=== PATIENT | male | born 1945 | race Two or more races ===

== ENCOUNTER 2017-03-01 08:45 | Inpatient (IN) | payer OTHER ==
[~2017-03-01] VITALS: Ht 165.1 cm; Wt 74.8 kg
[2017-03-01] VITALS (7 sets, daily range): BP systolic 107–127; BP diastolic 64–90
[2017-03-01 09:39] LABS: HEMATOCRIT 48.5 % (42.0-52.0); HEMOGLOBIN 15.7 G/DL (14.2-18.0); MEAN CORPUSCULAR VOLUME 97 FL (80-99); PLATELET COUNT 194 K/UL (150-450); RED CELL DISTRIBUTION WIDTH 10.8 % (11.6-14.8); WHITE BLOOD COUNT 15.4 K/UL (4.8-10.8)
[2017-03-01 09:43] LABS: ANION GAP 11 mmol/L (5-15); BLOOD UREA NITROGEN 19 mg/dL (7-18); CALCIUM 7.7 MG/DL (8.5-10.1); CARBON DIOXIDE 29 MMOL/L (21-32); CHLORIDE 96 MMOL/L (98-107); CREATININE 0.9 MG/DL (0.55-1.30); POTASSIUM 4.3 MMOL/L (3.5-5.1); SODIUM 136 MMOL/L (136-145)
[2017-03-01] MEDS ORDERED: Oseltamivir 75mg cap ORAL SCH (09:45)
--- NOTE | 2017-03-01 10:13 | Diagnostic Imaging Report ---
Indication: Cough Technique: One view of the chest Comparison: none Findings: Extensive bilateral diffuse interstitial and alveolar infiltrates versus edema are present. No definite effusions. The heart is enlarged Impression: Extensive bilateral diffuse parenchymal infiltrates versus edema. Correlate with clinical findings Cardiomegaly
[2017-03-01 10:14] LABS: ALANINE AMINOTRANSFERASE 29 U/L (12-78); ALBUMIN 3.1 G/DL (3.4-5.0); ALBUMIN/GLOBULIN RATIO 0.8 (1.0-2.7); ALKALINE PHOSPHATASE 88 U/L (46-116); ASPARTATE AMINO TRANSFERASE 20 U/L (15-37); BILIRUBIN,DIRECT 0.2 MG/DL (0.0-0.3); BILIRUBIN,TOTAL 1.1 MG/DL (0.2-1.0); CKMB 2.1 NG/ML (0.0-3.6); CREATINE KINASE 84 U/L (26-308)
--- NOTE | 2017-03-01 11:21 | Emergency Room Report ---
History of Present Illness General Chief Complaint: Dyspnea/Respdistress Source: Patient Present Illness HPI 71-year-old male brought in by daughter with 2 days of productive cough, decreased appetite, "not feeling well". Issue with history of diabetes, but "has not seen a doctor in a long time". Has not gotten flu or pneumonia vaccine Patient complaining of shortness of breath, progressively worse. denies any history of COPD or asthma Allergies: Coded Allergies: No Known Allergies (Unverified , 03/01/17) Patient History Past Medical History: DM Past Surgical History: none Pertinent Family History: none Social History: Denies: smoking, alcohol use, drug use Immunizations: UTD Reviewed Nursing Documentation: PMH: Agreed, PSxH: Agreed Nursing Documentation-PMH Hx Diabetes: Yes Review of Systems All Other Systems: negative except mentioned in HPI Physical Exam Vital Signs Date Time Temp Pulse Resp B/P (MAP) Pulse Ox O2 Delivery O2 Flow Rate FiO2 03/01/17 08:58 97.2 105 27 127/90 98 Non-Rebreather 15.0 Sp02 EP Interpretation: reviewed, normal General Appearance: normal inspection, alert, GCS 15, non-toxic, mild distress Head: normocephalic, atraumatic Eyes: bilateral eye PERRL, bilateral eye EOMI ENT: normal ENT inspection, hearing grossly normal, normal pharynx, no angioedema, normal voice, TMs + canals normal, uvula midline, moist mucus membranes Neck: normal inspection, full range of motion, supple, thyroid normal, no meningismus, no bony tend Respiratory: normal inspection, no retraction, no accessory muscle use, no wheezing, respiratory distress, accessory muscle use, rhonchi, speaking full sentences Cardiovascular #1: regular rate, rhythm, no edema, no JVD, normal capillary refill Gastrointestinal: normal inspection, normal bowel sounds, non tender, soft, no mass, no peritonitis, non-distended, no guarding, no hernia, no pulsatile mass Genitourinary: no CVA tenderness Musculoskeletal: normal inspection, back normal, normal range of motion, no calf tenderness, pelvis stable, Jose Rafael's Sign negative Neurologic: normal inspection, alert, oriented x3, responsive, 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, motor strength/tone normal, cerebellar normal, normal gait, speech normal Psychiatric: normal inspection, judgement/insight normal, mood/affect normal, no suicidal/homicidal ideation, no delusions Skin: normal inspection, normal color, no rash Lymphatic: normal inspection, no adenopathy Procedures Critical Care Time Critical Care Time CC time 30 Critical care time endorsed for this patient for sepsis, demand ischemia, bilateral PNA Critical care time includes review of laboratory tests, imaging, review of EMR, review of paperwork from SNF (if available), discussion with patient and family (if available), review of code status/POLS (if available). Critical care time also likely includes assessment of fluid status, stabilization of vital signs, selection and dosing of appropriate antibiotics, selection and dosing of Aspirin/Plavix/Heparin/Lovenox, discussion with PMD/ attending hospitalist/director workforce management. Critical care time does not include any procedures which are documented elsewhere in this EMR. Medical Decision Making Diagnostic Impression: Primary Impression: Dyspnea Qualified Codes: R06.00 - Dyspnea, unspecified Additional Impressions: Bilateral pneumonia Qualified Codes: J18.9 - Pneumonia, unspecified organism Sepsis Qualified Codes: A41.9 - Sepsis, unspecified organism Elevated troponin ER Course Patient's vital signs significant for tachycardia and tachypnea In setting of bilateral pneumonia, patient has sepsis Labs significant for elevated leukocytosis, lactate of 4, and elevated troponin 0.9, likely troponinemia due to demand ischemia from sepsis Was given empiric antibiotics, and IV fluid Patient did not have fever so was not given Tylenol Was also given aspirin for demand ischemia- ECG shows upsloping J-point in V3 V4 with Q waves in anterior leads No known history of previous CA. Will need repeat troponin ABG does not demonstrate acidosis Given sepsis due to bilateral pneumonia, patient placed on nonrebreather high disucssed with patient and daughter potential need to do intubation does not want to be intubated endorsing Dr. Martinez for ICU admission, [id number] Also endorsed to Dr. Avila as managing director workforce management EKG Diagnostic Results Rate: tachycardiac Rhythm: NSR ST Segments: other - Q waves in anterior leads ASA given to the pt in ED: Yes Rhythm Strip Diag. Results EP Interpretation: yes Rate: 95 Rhythm: NSR, no PVC's, no ectopy Chest X-Ray Diagnostic Results Chest X-Ray Diagnostic Results : Chest X-Ray Ordered: Yes # of Views/Limited/Complete: 1 View Indication: Shortness of Breath EP Interpretation: Yes Impression: Other - Bilateral PNA Electronically Signed by: Dr Gucci Arroyo MD Last Vital Signs Date Time Temp Pulse Resp B/P (MAP) Pulse Ox O2 Delivery O2 Flow Rate FiO2 03/01/17 09:08 105 27 Non-Rebreather 15.0 03/01/17 09:08 97.2 127/90 98 Status: improved Disposition: ADMITTED INPATIENT Condition: Critical Scripts No Active Prescriptions or Reported Meds Referrals: NOT CHOSEN IPA/,REFERRING (PCP) GUCCI ARROYO M.D. Mar 01, 2017 11:21
[2017-03-01] MEDS ORDERED: Morphine Sulfate 4mg/ml Inj IVP PRN (11:45)
[2017-03-01] MEDS ORDERED: Miralax 17gm pkt ORAL PRN (11:45)
[2017-03-01] MEDS ORDERED: Ertapenem 1 GM in NS 55 ML IV ONE (14:00)
[2017-03-01] MEDS ORDERED: Vancomycin 1 GM in D5W 275 ML IVPB ONE (14:30)
[2017-03-01] MEDS ORDERED: Vancomycin 500 MG in NS 110 ML IVPB SCH (14:45)
[2017-03-01] MEDS ORDERED: Amikacin 1,000 MG in NS 110 ML IV SCH (15:00)
[2017-03-01] MEDS ORDERED: Ertapenem (INVanz) 1gm Inj ONE (15:53)
[2017-03-01] MEDS ORDERED: Vancomycin 1gm inj IVPB ONE (16:33)
--- NOTE | 2017-03-01 22:11 | Consultation ---
History of Present Illness General Date patient seen: Mar 01, 2017 Chief Complaint: Dyspnea/Respdistress Referring physician: dr ye Reason for Consultation: respiratory failure Present Illness HPI 71-year-old with history of diabetes male brought in by daughter with 2 days of productive cough, decreased appetite, Patient complaining of shortness of breath, progressively worse.denies any history of COPD or asthma. His CXR showed extensive infiltrate and his sputum was positive for Influenza A. Allergies: Coded Allergies: No Known Allergies (Unverified , 03/01/17) Medication History No Active Prescriptions or Reported Meds Patient History Healthcare decision maker N Resuscitation status Advanced Directive on File Past Medical/Surgical History Past Medical/Surgical History: (1) History of diabetes mellitus Review of Systems Respiratory: Reports: shortness of breath Physical Exam General Appearance: WD/WN Lines, tubes and drains: peripheral HEENT: normocephalic, atraumatic Neck: non-tender Respiratory/Chest: chest wall non-tender, lungs clear Breasts: no masses Cardiovascular/Chest: normal rate Abdomen: normal bowel sounds Genitourinary/Rectal: normal genital exam, heme negative stool Last 24 Hour Vital Signs Date Time Temp Pulse Resp B/P (MAP) Pulse Ox O2 Delivery O2 Flow Rate FiO2 03/01/17 21:51 98.0 90 28 107/64 98 Non-Rebreather 10.0 60 03/01/17 21:33 98.0 90 28 107/64 98 Non-Rebreather 10.0 60 03/01/17 21:31 60 03/01/17 19:42 98.0 95 33 115/77 100 Non-Rebreather 10.0 03/01/17 18:01 98.0 101 33 115/68 92 Non-Rebreather 10.0 03/01/17 16:00 98.2 95 33 112/78 95 Nasal Cannula 5.0 03/01/17 13:00 97.0 91 21 115/73 95 Nasal Cannula 5.0 03/01/17 11:15 97.2 98 25 120/88 96 Non-Rebreather 15.0 03/01/17 09:08 105 27 Non-Rebreather 15.0 03/01/17 09:08 97.2 103 27 127/90 98 Non-Rebreather 15.0 03/01/17 08:58 97.2 105 27 127/90 98 Non-Rebreather 15.0 Laboratory Tests Test 03/01/17 08:55 03/01/17 10:12 03/01/17 10:30 03/01/17 13:00 White Blood Count 15.4 K/UL (4.8-10.8) H Red Blood Count 5.00 M/UL (4.70-6.10) Hemoglobin 15.7 G/DL (14.2-18.0) Hematocrit 48.5 % (42.0-52.0) Mean Corpuscular Volume 97 FL (80-99) Mean Corpuscular Hemoglobin 31.3 PG (27.0-31.0) H Mean Corpuscular Hemoglobin Concent 32.3 G/DL (32.0-36.0) Red Cell Distribution Width 10.8 % (11.6-14.8) L Platelet Count 194 K/UL (150-450) Mean Platelet Volume 8.4 FL (6.5-10.1) Neutrophils (%) (Auto) % (45.0-75.0) Lymphocytes (%) (Auto) % (20.0-45.0) Monocytes (%) (Auto) % (1.0-10.0) Eosinophils (%) (Auto) % (0.0-3.0) Basophils (%) (Auto) % (0.0-2.0) Differential Total Cells Counted 100 Neutrophils % (Manual) 89 % (45-75) H Lymphocytes % (Manual) 8 % (20-45) L Monocytes % (Manual) 3 % (1-10) Eosinophils % (Manual) 0 % (0-3) Basophils % (Manual) 0 % (0-2) Band Neutrophils 0 % (0-8) Platelet Estimate Adequate Platelet Morphology Normal Red Blood Cell Morphology Normal Sodium Level 136 MMOL/L (136-145) Potassium Level 4.3 MMOL/L (3.5-5.1) Chloride Level 96 MMOL/L (98-107) L Carbon Dioxide Level 29 MMOL/L (21-32) Anion Gap 11 mmol/L (5-15) Blood Urea Nitrogen 19 mg/dL (7-18) H Creatinine 0.9 MG/DL (0.55-1.30) Estimat Glomerular Filtration Rate mL/min (>60) Glucose Level 397 MG/DL (74-106) H Calcium Level 7.7 MG/DL (8.5-10.1) L Total Bilirubin 1.1 MG/DL (0.2-1.0) H Direct Bilirubin 0.2 MG/DL (0.0-0.3) Aspartate Amino Transf (AST/SGOT) 20 U/L (15-37) Alanine Aminotransferase (ALT/SGPT) 29 U/L (12-78) Alkaline Phosphatase 88 U/L (46-116) Total Creatine Kinase 84 U/L (26-308) Creatine Kinase MB 2.1 NG/ML (0.0-3.6) Creatine Kinase MB Relative Index 2.5 Troponin I 0.930 ng/mL (0.000-0.056) Pro-B-Type Natriuretic Peptide 7715 pg/mL (0-125) H Total Protein 7.0 G/DL (6.4-8.2) Albumin 3.1 G/DL (3.4-5.0) L Globulin 3.9 g/dL Albumin/Globulin Ratio 0.8 (1.0-2.7) L Arterial Blood pH 7.455 (7.350-7.450) Arterial Blood Partial Pressure CO2 34.2 mmHg (35.0-45.0) L Arterial Blood Partial Pressure O2 112.2 mmHg (75.0-100.0) H Arterial Blood HCO3 23.5 mmol/L (22.0-26.0) Arterial Blood Oxygen Saturation 97.9 % (92.0-98.0) Arterial Blood Base Excess 0.3 Hero Test Positive Lactic Acid Level 4.10 mmol/L (0.66-2.22) H 3.90 mmol/L (0.66-2.22) H Test 03/01/17 20:36 Arterial Blood pH 7.413 (7.350-7.450) Arterial Blood Partial Pressure CO2 42.3 mmHg (35.0-45.0) Arterial Blood Partial Pressure O2 66.8 mmHg (75.0-100.0) L Arterial Blood HCO3 26.4 mmol/L (22.0-26.0) H Arterial Blood Oxygen Saturation 92.6 % (92.0-98.0) Arterial Blood Base Excess 1.6 Hero Test Positive Height (Feet): 5 Height (Inches): 5.00 Weight (Pounds): 150 Medications Current Medications Medications (Trade) Dose Ordered Sig/Channing Route PRN Reason Start Time Stop Time Status Last Admin Dose Admin Acetaminophen (Tylenol) 650 mg Q4H PRN ORAL fever 03/01/17 11:45 03/31/17 11:44 Albuterol/ Ipratropium (Albuterol/ Ipratropium) 3 ml Q4H PRN HHN Shortness of Breath 03/01/17 11:45 03/06/17 11:44 Amikacin Sulfate 1000 mg/Sodium Chloride 114 ml @ 114 mls/hr Q24H IV 03/01/17 15:00 03/08/17 14:59 03/01/17 18:46 Heparin Sodium (Porcine) (Heparin 5000 units/ml) 5,000 units EVERY 12 HOURS SUBQ 03/01/17 21:00 03/31/17 20:59 Morphine Sulfate (Morphine Sulfate) 2 mg Q4H PRN IVP Severe Pain (Pain Scale 7-10) 03/01/17 11:45 03/08/17 11:44 Norepinephrine Bitartrate 4 mg/ Dextrose 254 ml @ 0 mls/hr Q24H IV 03/01/17 13:30 03/31/17 13:29 Ondansetron HCl (Zofran) 4 mg Q6H PRN IVP Nausea & Vomiting 03/01/17 11:45 03/31/17 11:44 Oseltamivir Phosphate (Tamiflu) 75 mg TWICE A DAY ORAL 03/01/17 22:00 03/06/17 21:59 Pantoprazole (Protonix) 40 mg DAILY IVP 03/02/17 09:00 04/01/17 08:59 Sodium Chloride 1,000 ml @ 100 mls/hr Q10H IVLG 03/01/17 13:30 03/31/17 13:29 03/01/17 16:01 Vancomycin HCl 500 mg/Sodium Chloride 110 ml @ 110 mls/hr Q12H IVPB 03/02/17 02:00 03/07/17 01:59 Assessment/Plan Problem List: (1) Acute respiratory failure ICD Codes: J96.00 - Acute respiratory failure, unspecified whether with hypoxia or hypercapnia SNOMED: 27268835 (2) History of diabetes mellitus ICD Codes: Z86.39 - Personal history of other endocrine, nutritional and metabolic disease SNOMED: 457148574 (3) Influenza A ICD Codes: J10.1 - Influenza due to other identified influenza virus with other respiratory manifestations SNOMED: 745857185 Assessment/Plan titrate fio2 to sat of 92% check sputum ID consult dvt prophylaxis JAYRO FREDERICK Mar 01, 2017 22:11
[2017-03-01] MEDS: Heparin 5000 units/ml inj SUBQ SCH (23:36)
[2017-03-01] MEDS: Oseltamivir 75mg cap ORAL SCH (23:36)
[2017-03-02] VITALS: BP 115/71
[2017-03-02] MEDS ORDERED: Vancomycin 500mg/D5W 110ml IVPB SCH ×2 (02:00)
[2017-03-02] MEDS ORDERED: Vancomycin 500 MG in NS 110 ML IVPB SCH (02:00)
[2017-03-02] MEDS: Albuterol/Ipratropium 3ml neb HHN PRN ×2 (02:13→16:31)
[2017-03-02 04:00] VITALS: BP 135/72
[2017-03-02 05:01] LABS: HEMATOCRIT 46.6 % (42.0-52.0); HEMOGLOBIN 15.6 G/DL (14.2-18.0); MEAN CORPUSCULAR VOLUME 97 FL (80-99); PLATELET COUNT 200 K/UL (150-450); RED CELL DISTRIBUTION WIDTH 11.2 % (11.6-14.8); WHITE BLOOD COUNT 14.4 K/UL (4.8-10.8)
[2017-03-02 05:30] LABS: ALANINE AMINOTRANSFERASE 19 U/L (12-78); ALBUMIN 2.6 G/DL (3.4-5.0); ALBUMIN/GLOBULIN RATIO 0.7 (1.0-2.7); ALKALINE PHOSPHATASE 73 U/L (46-116); ANION GAP 12 mmol/L (5-15); ASPARTATE AMINO TRANSFERASE 19 U/L (15-37); BILIRUBIN,DIRECT 0.2 MG/DL (0.0-0.3); BILIRUBIN,TOTAL 0.9 MG/DL (0.2-1.0); BLOOD UREA NITROGEN 23 mg/dL (7-18); CALCIUM 7.2 MG/DL (8.5-10.1); CARBON DIOXIDE 24 MMOL/L (21-32); CHLORIDE 102 MMOL/L (98-107); CREATININE 0.8 MG/DL (0.55-1.30); POTASSIUM 4.5 MMOL/L (3.5-5.1); SODIUM 138 MMOL/L (136-145)
[2017-03-02 08:00] VITALS: BP 129/77
[2017-03-02] MEDS: Pantoprazole Inj IVP SCH (09:15)
[2017-03-02] MEDS: Oseltamivir 75mg cap ORAL SCH ×2 (09:15→17:13)
[2017-03-02] MEDS: Heparin 5000 units/ml inj SUBQ SCH (09:19)
--- NOTE | 2017-03-02 10:54 | Consultation ---
History of Present Illness General Date patient seen: Mar 02, 2017 Time patient seen: 10:39 Chief Complaint: Dyspnea/Respdistress Present Illness HPI 71 y/o M with hx of Dm2 presents to ED on 03/01 with 2 days of productive cough, decreased appetite, not feeling well and worsening SOB. Afebrile. Leukocytosis up to 15, now improving. CXR with edema vs infiltrates. Positive for Influenza A. started on IV vanco, erta, amikacin and tamiflu. Allergies: Coded Allergies: No Known Allergies (Unverified , 03/01/17) Medication History No Active Prescriptions or Reported Meds Patient History Healthcare decision maker PRESLEY RYDER Resuscitation status Full Code Advanced Directive on File No Patient History Narrative PMhx: as above Shx: Denies: smoking, alcohol use, drug use Fhx: non contributory Review of Systems All Other Systems: negative except mentioned in HPI Physical Exam Physical Exam Narrative General Appearance: normal inspection, alert, non-toxic, mild distress, on bipap HEENT:: normocephalic, atraumatic, bilateral eye PERRL, bilateral eye EOMI, moist mucus membranes Neck: normal inspection, full range of motion, supple, thyroid normal, no meningismus, no bony tend Respiratory: +wheezing Cardiovascular regular rate, rhythm, no edema Gastrointestinal: normal inspection, normal bowel sounds, non tender, soft, no mass non-distended, Musculoskeletal: normal inspection, back normal, normal range of motion Neurologic: normal inspection, alert, oriented x3, responsive,no focal deficits Skin: normal inspection, normal color, no rash Last 24 Hour Vital Signs Date Time Temp Pulse Resp B/P (MAP) Pulse Ox O2 Delivery O2 Flow Rate FiO2 03/02/17 09:49 109 26 97 Facial 60 03/02/17 08:32 Non-Rebreather 15.0 100 03/02/17 08:31 97 Non-Rebreather 15.0 100 03/02/17 08:30 100 26 Non-Rebreather 15.0 100 03/02/17 04:00 97.6 110 20 135/72 97 Non-Rebreather 15.0 03/02/17 03:36 110 03/02/17 02:24 109 24 91 Non-Rebreather 15.0 100 03/02/17 00:14 96 Non-Rebreather 15.0 100 03/02/17 00:14 Non-Rebreather 15.0 100 03/02/17 00:00 97.7 103 20 115/71 98 Non-Rebreather 15.0 03/02/17 00:00 102 03/01/17 21:51 98.0 90 28 107/64 98 Non-Rebreather 10.0 60 03/01/17 21:33 98.0 90 28 107/64 98 Non-Rebreather 10.0 60 03/01/17 21:31 60 03/01/17 21:12 94 34 96 Facial 60 03/01/17 20:14 93 36 95 Facial 50 03/01/17 20:14 107 24 97 Non-Rebreather 15.0 100 03/01/17 20:14 107 24 Non-Rebreather 15.0 100 03/01/17 20:14 100 03/01/17 19:42 98.0 95 33 115/77 100 Non-Rebreather 10.0 03/01/17 19:00 100 26 Non-Rebreather 15.0 100 03/01/17 18:01 98.0 101 33 115/68 92 Non-Rebreather 10.0 03/01/17 16:00 98.2 95 33 112/78 95 Nasal Cannula 5.0 03/01/17 13:00 97.0 91 21 115/73 95 Nasal Cannula 5.0 03/01/17 11:15 97.2 98 25 120/88 96 Non-Rebreather 15.0 Intake and Output 03/01/17 03/02/17 19:00 07:00 Intake Total 1680.0 ml 960 ml Balance 1680.0 ml 960 ml Intake Oral 100 ml IV Total 1680.0 ml 860 ml # Voids 1 2 Laboratory Tests Test 03/01/17 13:00 03/01/17 20:36 03/02/17 04:00 03/02/17 08:22 Lactic Acid Level 3.90 mmol/L (0.66-2.22) H Arterial Blood pH 7.413 (7.350-7.450) 7.270 (7.350-7.450) Arterial Blood Partial Pressure CO2 42.3 mmHg (35.0-45.0) 49.9 mmHg (35.0-45.0) H Arterial Blood Partial Pressure O2 66.8 mmHg (75.0-100.0) L 79.8 mmHg (75.0-100.0) Arterial Blood HCO3 26.4 mmol/L (22.0-26.0) H 22.4 mmol/L (22.0-26.0) Arterial Blood Oxygen Saturation 92.6 % (92.0-98.0) 94.1 % (92.0-98.0) Arterial Blood Base Excess 1.6 -4.9 Hero Test Positive Positive White Blood Count 14.4 K/UL (4.8-10.8) H Red Blood Count 4.80 M/UL (4.70-6.10) Hemoglobin 15.6 G/DL (14.2-18.0) Hematocrit 46.6 % (42.0-52.0) Mean Corpuscular Volume 97 FL (80-99) Mean Corpuscular Hemoglobin 32.5 PG (27.0-31.0) H Mean Corpuscular Hemoglobin Concent 33.5 G/DL (32.0-36.0) Red Cell Distribution Width 11.2 % (11.6-14.8) L Platelet Count 200 K/UL (150-450) Mean Platelet Volume 8.6 FL (6.5-10.1) Neutrophils (%) (Auto) % (45.0-75.0) Lymphocytes (%) (Auto) % (20.0-45.0) Monocytes (%) (Auto) % (1.0-10.0) Eosinophils (%) (Auto) % (0.0-3.0) Basophils (%) (Auto) % (0.0-2.0) Differential Total Cells Counted 100 Neutrophils % (Manual) 93 % (45-75) H Lymphocytes % (Manual) 4 % (20-45) L Monocytes % (Manual) 3 % (1-10) Eosinophils % (Manual) 0 % (0-3) Basophils % (Manual) 0 % (0-2) Band Neutrophils 0 % (0-8) Platelet Estimate Adequate Platelet Morphology Normal Red Blood Cell Morphology Normal Sodium Level 138 MMOL/L (136-145) Potassium Level 4.5 MMOL/L (3.5-5.1) Chloride Level 102 MMOL/L (98-107) Carbon Dioxide Level 24 MMOL/L (21-32) Anion Gap 12 mmol/L (5-15) Blood Urea Nitrogen 23 mg/dL (7-18) H Creatinine 0.8 MG/DL (0.55-1.30) Estimat Glomerular Filtration Rate mL/min (>60) Glucose Level 280 MG/DL (74-106) #H Calcium Level 7.2 MG/DL (8.5-10.1) L Total Bilirubin 0.9 MG/DL (0.2-1.0) Direct Bilirubin 0.2 MG/DL (0.0-0.3) Aspartate Amino Transf (AST/SGOT) 19 U/L (15-37) Alanine Aminotransferase (ALT/SGPT) 19 U/L (12-78) Alkaline Phosphatase 73 U/L (46-116) Total Protein 6.1 G/DL (6.4-8.2) L Albumin 2.6 G/DL (3.4-5.0) L Globulin 3.5 g/dL Albumin/Globulin Ratio 0.7 (1.0-2.7) L Random Amikacin Level Pending Microbiology Date/Time Source Procedure Growth Status 03/01/17 23:30 Nasopharynx Influenza Types A,B Antigen (ERIN) - Final Complete Height (Feet): 5 Height (Inches): 5.00 Weight (Pounds): 165 Medications Current Medications Medications (Trade) Dose Ordered Sig/Channing Route PRN Reason Start Time Stop Time Status Last Admin Dose Admin Acetaminophen (Tylenol) 650 mg Q4H PRN ORAL fever 03/01/17 11:45 03/31/17 11:44 Albuterol/ Ipratropium (Albuterol/ Ipratropium) 3 ml Q4H PRN HHN Shortness of Breath 03/01/17 11:45 03/06/17 11:44 03/02/17 02:13 Amikacin Sulfate 1000 mg/Sodium Chloride 114 ml @ 114 mls/hr Q24H IV 03/01/17 15:00 03/08/17 14:59 03/01/17 18:46 Heparin Sodium (Porcine) (Heparin 5000 units/ml) 5,000 units EVERY 12 HOURS SUBQ 03/01/17 21:00 03/31/17 20:59 03/02/17 09:19 Morphine Sulfate (Morphine Sulfate) 2 mg Q4H PRN IVP Severe Pain (Pain Scale 7-10) 03/01/17 11:45 03/08/17 11:44 Norepinephrine Bitartrate 4 mg/ Dextrose 254 ml @ 0 mls/hr Q24H IV 03/01/17 13:30 03/31/17 13:29 Ondansetron HCl (Zofran) 4 mg Q6H PRN IVP Nausea & Vomiting 03/01/17 11:45 03/31/17 11:44 Oseltamivir Phosphate (Tamiflu) 75 mg TWICE A DAY ORAL 03/01/17 22:00 03/06/17 21:59 03/02/17 09:15 Pantoprazole (Protonix) 40 mg DAILY IVP 03/02/17 09:00 04/01/17 08:59 03/02/17 09:15 Sodium Chloride 1,000 ml @ 100 mls/hr Q10H IVLG 03/01/17 13:30 03/31/17 13:29 03/01/17 23:36 Vancomycin HCl 500 mg/Sodium Chloride 110 ml @ 110 mls/hr Q12H IVPB 03/02/17 02:00 03/07/17 01:59 03/02/17 02:16 Assessment/Plan Assessment/Plan Abx: IV Vanco 03/01- Ertapenem x1 03/01 Amikacin 03/01- Levaquin x1 03/01 Tamiflu 03/01- Assessment: Influenza A infection -possible bacterial superinfection -CXR: Extensive bilateral diffuse parenchymal infiltrates versus edema. Correlate with clinical findings -sp cx p Leukocytosis, improving -afebrile -Bcx p Dm2 Plan: -Continue Tamiflu #2/5-7 -D/C IV Vanco #2, Amikacin #1 and switch to Unasyn for possible concomitant bacterial PNA -03/01 SP Levaquin x1, Ertapenem x1 -f/u cx -Monitor CBC/BMP, temperatures -droplet precautions Thank you for this consultation. Will continue to follow along with you. Discussed with Chayo Sanchez M.D. Mar 02, 2017 10:54
--- NOTE | 2017-03-02 11:38 | Diagnostic Imaging Report ---
Indication: Dyspnea Technique: One view of the chest Comparison: 03/01/2017 Findings: There is bilateral diffuse extensive interstitial and airspace edema versus infiltrate, appearing similar to or perhaps slightly worse than the prior study. Are remains enlarged. There is probably pleural fluid on the left. Impression: Stable or slightly worse bilateral diffuse interstitial and airspace infiltrates versus edema, over one day Probable small left pleural effusion
[2017-03-02 12:00] VITALS: BP 109/71
--- NOTE | 2017-03-02 12:47 | Pulmonolgy Critical Care Note ---
Critical Care - Asmt/Plan Problems: (1) Acute respiratory failure (2) Bilateral pneumonia (3) Elevated troponin (4) Influenza A (5) History of diabetes mellitus Respiratory: adjust FIO2, CXR Cardiac: continue to monitor HR/BP Renal: F/U I&O, keep IV fluid Infectious Disease: continue antibiotics Gastrointestinal: hold feedings Endocrine: monitor blood sugar Neurologic: PRN Ativan Affect: PRN ativan Prophylaxis: Protonix Notes Reviewed: cardio Discussed with: nurses, consultants, case sealermanager hospitality - Objective Last 24 Hour Vital Signs Date Time Temp Pulse Resp B/P (MAP) Pulse Ox O2 Delivery O2 Flow Rate FiO2 03/02/17 11:35 95 22 97 Facial 60 03/02/17 09:49 109 26 97 Facial 60 03/02/17 08:32 Non-Rebreather 15.0 100 03/02/17 08:31 97 Non-Rebreather 15.0 100 03/02/17 08:30 100 26 Non-Rebreather 15.0 100 03/02/17 08:00 96.8 120 20 129/77 96 Non-Rebreather 15.0 03/02/17 08:00 111 03/02/17 04:00 97.6 110 20 135/72 97 Non-Rebreather 15.0 03/02/17 03:36 110 03/02/17 02:24 109 24 91 Non-Rebreather 15.0 100 03/02/17 00:14 96 Non-Rebreather 15.0 100 03/02/17 00:14 Non-Rebreather 15.0 100 03/02/17 00:00 97.7 103 20 115/71 98 Non-Rebreather 15.0 03/02/17 00:00 102 03/01/17 21:51 98.0 90 28 107/64 98 Non-Rebreather 10.0 60 03/01/17 21:33 98.0 90 28 107/64 98 Non-Rebreather 10.0 60 03/01/17 21:31 60 03/01/17 21:12 94 34 96 Facial 60 03/01/17 20:14 93 36 95 Facial 50 03/01/17 20:14 107 24 97 Non-Rebreather 15.0 100 03/01/17 20:14 107 24 Non-Rebreather 15.0 100 03/01/17 20:14 100 03/01/17 19:42 98.0 95 33 115/77 100 Non-Rebreather 10.0 03/01/17 19:00 100 26 Non-Rebreather 15.0 100 03/01/17 18:01 98.0 101 33 115/68 92 Non-Rebreather 10.0 03/01/17 16:00 98.2 95 33 112/78 95 Nasal Cannula 5.0 03/01/17 13:00 97.0 91 21 115/73 95 Nasal Cannula 5.0 Condition: critical HEENT: atraumatic Lungs: chest wall tender Heart: HR/BP stable, HR/BP unstable Abdomen: soft, feeding tube Extremities: no C/C/E Micro: Microbiology Date/Time Source Procedure Growth Status 03/01/17 23:30 Nasopharynx Influenza Types A,B Antigen (ERIN) - Final Complete Accucheck: 293 Critical Care - Subjective ROS Limited/Unobtainable: No Intubation Day: on bipap Condition: critical IV Access: PICC EKG Rhythm: Sinus Rhythm FI02: 60 Sputum Amount: None I&O: Intake and Output 03/01/17 03/02/17 19:00 07:00 Intake Total 1680.0 ml 960 ml Balance 1680.0 ml 960 ml Intake Oral 100 ml IV Total 1680.0 ml 860 ml # Voids 1 2 CXR: extensive interstitial infiltrate Labs: Laboratory Tests Test 03/01/17 13:00 03/01/17 20:36 03/02/17 04:00 03/02/17 08:22 Lactic Acid Level 3.90 mmol/L (0.66-2.22) H Arterial Blood pH 7.413 (7.350-7.450) 7.270 (7.350-7.450) Arterial Blood Partial Pressure CO2 42.3 mmHg (35.0-45.0) 49.9 mmHg (35.0-45.0) H Arterial Blood Partial Pressure O2 66.8 mmHg (75.0-100.0) L 79.8 mmHg (75.0-100.0) Arterial Blood HCO3 26.4 mmol/L (22.0-26.0) H 22.4 mmol/L (22.0-26.0) Arterial Blood Oxygen Saturation 92.6 % (92.0-98.0) 94.1 % (92.0-98.0) Arterial Blood Base Excess 1.6 -4.9 Hero Test Positive Positive White Blood Count 14.4 K/UL (4.8-10.8) H Red Blood Count 4.80 M/UL (4.70-6.10) Hemoglobin 15.6 G/DL (14.2-18.0) Hematocrit 46.6 % (42.0-52.0) Mean Corpuscular Volume 97 FL (80-99) Mean Corpuscular Hemoglobin 32.5 PG (27.0-31.0) H Mean Corpuscular Hemoglobin Concent 33.5 G/DL (32.0-36.0) Red Cell Distribution Width 11.2 % (11.6-14.8) L Platelet Count 200 K/UL (150-450) Mean Platelet Volume 8.6 FL (6.5-10.1) Neutrophils (%) (Auto) % (45.0-75.0) Lymphocytes (%) (Auto) % (20.0-45.0) Monocytes (%) (Auto) % (1.0-10.0) Eosinophils (%) (Auto) % (0.0-3.0) Basophils (%) (Auto) % (0.0-2.0) Differential Total Cells Counted 100 Neutrophils % (Manual) 93 % (45-75) H Lymphocytes % (Manual) 4 % (20-45) L Monocytes % (Manual) 3 % (1-10) Eosinophils % (Manual) 0 % (0-3) Basophils % (Manual) 0 % (0-2) Band Neutrophils 0 % (0-8) Platelet Estimate Adequate Platelet Morphology Normal Red Blood Cell Morphology Normal Sodium Level 138 MMOL/L (136-145) Potassium Level 4.5 MMOL/L (3.5-5.1) Chloride Level 102 MMOL/L (98-107) Carbon Dioxide Level 24 MMOL/L (21-32) Anion Gap 12 mmol/L (5-15) Blood Urea Nitrogen 23 mg/dL (7-18) H Creatinine 0.8 MG/DL (0.55-1.30) Estimat Glomerular Filtration Rate mL/min (>60) Glucose Level 280 MG/DL (74-106) #H Calcium Level 7.2 MG/DL (8.5-10.1) L Total Bilirubin 0.9 MG/DL (0.2-1.0) Direct Bilirubin 0.2 MG/DL (0.0-0.3) Aspartate Amino Transf (AST/SGOT) 19 U/L (15-37) Alanine Aminotransferase (ALT/SGPT) 19 U/L (12-78) Alkaline Phosphatase 73 U/L (46-116) Total Protein 6.1 G/DL (6.4-8.2) L Albumin 2.6 G/DL (3.4-5.0) L Globulin 3.5 g/dL Albumin/Globulin Ratio 0.7 (1.0-2.7) L Random Amikacin Level Pending JAYRO FREDERICK Mar 02, 2017 12:47
[2017-03-02 16:00] VITALS: BP 110/72
[2017-03-02] MEDS: Aspirin Baby 81mg ORAL SCH (17:12)
[2017-03-02] MEDS: Ampicillin/Sulbactam Sod 3 GM in NS 110 ML IVPB SCH ×2 (17:13→23:57)
--- NOTE | 2017-03-02 18:09 | Cardiology Progress Note ---
Assessment/Plan Assessment/Plan The patient is seen and examined, full consult note will be dictated. Objective Last 24 Hour Vital Signs Date Time Temp Pulse Resp B/P (MAP) Pulse Ox O2 Delivery O2 Flow Rate FiO2 03/02/17 16:41 111 23 93 Venturi Mask 14.0 55 03/02/17 16:31 100 03/02/17 16:31 109 24 88 Venturi Mask 14.0 55 03/02/17 16:00 97.9 99 25 110/72 95 Venturi Mask 03/02/17 16:00 109 03/02/17 13:26 94 22 98 Facial 60 03/02/17 12:00 97.9 97 32 109/71 97 Non-Rebreather 15.0 03/02/17 12:00 83 03/02/17 11:35 95 22 97 Facial 60 03/02/17 09:49 109 26 97 Facial 60 03/02/17 08:32 Non-Rebreather 15.0 100 03/02/17 08:31 97 Non-Rebreather 15.0 100 03/02/17 08:30 100 26 Non-Rebreather 15.0 100 03/02/17 08:00 96.8 120 20 129/77 96 Non-Rebreather 15.0 03/02/17 08:00 111 03/02/17 04:00 97.6 110 20 135/72 97 Non-Rebreather 15.0 03/02/17 03:36 110 03/02/17 02:24 109 24 91 Non-Rebreather 15.0 100 03/02/17 00:14 96 Non-Rebreather 15.0 100 03/02/17 00:14 Non-Rebreather 15.0 100 03/02/17 00:00 97.7 103 20 115/71 98 Non-Rebreather 15.0 03/02/17 00:00 102 03/01/17 21:51 98.0 90 28 107/64 98 Non-Rebreather 10.0 60 03/01/17 21:33 98.0 90 28 107/64 98 Non-Rebreather 10.0 60 03/01/17 21:31 60 03/01/17 21:12 94 34 96 Facial 60 03/01/17 20:14 93 36 95 Facial 50 03/01/17 20:14 107 24 97 Non-Rebreather 15.0 100 03/01/17 20:14 107 24 Non-Rebreather 15.0 100 03/01/17 20:14 100 03/01/17 19:42 98.0 95 33 115/77 100 Non-Rebreather 10.0 03/01/17 19:00 100 26 Non-Rebreather 15.0 100 Intake and Output 03/01/17 03/02/17 19:00 07:00 Intake Total 1680.0 ml 960 ml Balance 1680.0 ml 960 ml Intake Oral 100 ml IV Total 1680.0 ml 860 ml # Voids 1 2 Laboratory Tests Test 03/01/17 20:36 03/02/17 04:00 03/02/17 08:22 Arterial Blood pH 7.413 (7.350-7.450) 7.270 (7.350-7.450) Arterial Blood Partial Pressure CO2 42.3 mmHg (35.0-45.0) 49.9 mmHg (35.0-45.0) H Arterial Blood Partial Pressure O2 66.8 mmHg (75.0-100.0) L 79.8 mmHg (75.0-100.0) Arterial Blood HCO3 26.4 mmol/L (22.0-26.0) H 22.4 mmol/L (22.0-26.0) Arterial Blood Oxygen Saturation 92.6 % (92.0-98.0) 94.1 % (92.0-98.0) Arterial Blood Base Excess 1.6 -4.9 Hero Test Positive Positive White Blood Count 14.4 K/UL (4.8-10.8) H Red Blood Count 4.80 M/UL (4.70-6.10) Hemoglobin 15.6 G/DL (14.2-18.0) Hematocrit 46.6 % (42.0-52.0) Mean Corpuscular Volume 97 FL (80-99) Mean Corpuscular Hemoglobin 32.5 PG (27.0-31.0) H Mean Corpuscular Hemoglobin Concent 33.5 G/DL (32.0-36.0) Red Cell Distribution Width 11.2 % (11.6-14.8) L Platelet Count 200 K/UL (150-450) Mean Platelet Volume 8.6 FL (6.5-10.1) Neutrophils (%) (Auto) % (45.0-75.0) Lymphocytes (%) (Auto) % (20.0-45.0) Monocytes (%) (Auto) % (1.0-10.0) Eosinophils (%) (Auto) % (0.0-3.0) Basophils (%) (Auto) % (0.0-2.0) Differential Total Cells Counted 100 Neutrophils % (Manual) 93 % (45-75) H Lymphocytes % (Manual) 4 % (20-45) L Monocytes % (Manual) 3 % (1-10) Eosinophils % (Manual) 0 % (0-3) Basophils % (Manual) 0 % (0-2) Band Neutrophils 0 % (0-8) Platelet Estimate Adequate Platelet Morphology Normal Red Blood Cell Morphology Normal Sodium Level 138 MMOL/L (136-145) Potassium Level 4.5 MMOL/L (3.5-5.1) Chloride Level 102 MMOL/L (98-107) Carbon Dioxide Level 24 MMOL/L (21-32) Anion Gap 12 mmol/L (5-15) Blood Urea Nitrogen 23 mg/dL (7-18) H Creatinine 0.8 MG/DL (0.55-1.30) Estimat Glomerular Filtration Rate mL/min (>60) Glucose Level 280 MG/DL (74-106) #H Calcium Level 7.2 MG/DL (8.5-10.1) L Total Bilirubin 0.9 MG/DL (0.2-1.0) Direct Bilirubin 0.2 MG/DL (0.0-0.3) Aspartate Amino Transf (AST/SGOT) 19 U/L (15-37) Alanine Aminotransferase (ALT/SGPT) 19 U/L (12-78) Alkaline Phosphatase 73 U/L (46-116) Total Protein 6.1 G/DL (6.4-8.2) L Albumin 2.6 G/DL (3.4-5.0) L Globulin 3.5 g/dL Albumin/Globulin Ratio 0.7 (1.0-2.7) L Random Amikacin Level 3.1 MG/L Microbiology Date/Time Source Procedure Growth Status 03/01/17 23:30 Nasopharynx Influenza Types A,B Antigen (ERIN) - Final Complete 03/01/17 06:40 Sputum Gram Stain - Final Resulted 03/01/17 06:40 Sputum Sputum Culture Pending Resulted NICK FINLEY Mar 02, 2017 18:09
--- NOTE | 2017-03-02 19:30 | Consultation ---
DATE OF CONSULTATION: 03/02/2017 CARDIOLOGY CONSULTATION CONSULTING PHYSICIAN: Tien Stearns M.D. REFERRING PHYSICIAN: Osmel Martinez M.D. REASON FOR CONSULTATION: Management of dyspnea. HISTORY OF PRESENT ILLNESS: The patient is a very pleasant 71-year-old gentleman, who was brought in by his daughter after two days of productive cough, decreased appetite, and feeling sick. The patient on arrival to the hospital, had a blood pressure of 127/90, respirations 27, and heart rate of 105. Initial 12-lead electrocardiogram was significant for Q complex in leads III and aVF associated with inferior wall infarct, age indeterminate, and Q-waves in lead V3 suggestive of anterolateral infarct, age probably old, but no acute ST and T-wave abnormalities. The rhythm was sinus tach and a QT interval was within normal limits. Chest x-ray showed bilateral pulmonary edema. The patient was admitted to [facility] for further evaluation and management of pulmonary edema and dyspnea from Cardiology standpoint. Cardiology consultation was made at the request of Dr. Martinez. PAST MEDICAL HISTORY: 1. Diabetes mellitus. 2. Noncompliance with healthcare provider appointments or medications. The patient basically is using herbs for diabetes mellitus. 3. Diabetic dermopathy. PAST SURGICAL HISTORY: None. MEDICATIONS: List of medications, none. FAMILY HISTORY: No premature coronary artery disease in first-degree relatives. SOCIAL HISTORY: Denies any tobacco, alcohol, or illicit drug use. REVIEW OF SYSTEMS: A 12-system review done essentially negative except what mentioned in the history of present illness. PHYSICAL EXAMINATION: VITAL SIGNS: Blood pressure was 127/90, respirations 27, pulse of 105, temperature 97.2 degrees Fahrenheit, and O2 saturation 98% on non-rebreather mask. GENERAL: The patient is a very unfortunate 71-year-old gentleman, in mild respiratory distress, on non-rebreather mask. Alert and oriented x4. HEENT: Atraumatic and normocephalic. Anicteric. Pupils are equal, round, and reactive to light and accommodation. Extraocular muscles intact. NECK: JVP less than 5 cm. No carotid bruit. Carotid upstrokes 2+ bilaterally. CARDIOVASCULAR: Normal S1, S2. Tachycardic. No murmurs, gallops, or rubs. PMI is at fourth intercostal space in the midclavicular line. LUNGS: Diminished breath sounds plus bibasilar crackles. ABDOMEN: Soft, nontender, and nondistended. No hepatosplenomegaly. Positive bowel sounds. 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 A 1+ edema around the ankles. LABORATORY FINDINGS: WBC is 15.4, hemoglobin of 15.7, hematocrit of 48.5, and platelet counts was 194,000. Sodium was 136, potassium is 4.3, chloride 96, bicarbonate 29, BUN of 19, creatinine 0.9, and glucose is 397. Calcium is 7.7. Troponin I was 0.930. ProBNP was 7715. Chest x-ray showed extensive bilateral diffuse parenchymal infiltrate versus edema. ASSESSMENT AND PLAN: The patient is a very unfortunate 71-year-old gentleman, seen in Cardiology consultation at the request of Dr. Martinez. 1. Pulmonary edema. Although one believes this to be due to influenza virus as the titer was positive, a 2D echocardiography result just arrived and revealed left ventricular dilatation with wall motion abnormalities in the anterolateral, anterior, and anteroseptal wall suggestive of possible infarct in the LAD distribution. Left ventricular ejection fraction is calculated as about 30%. I would like to start the patient on more aggressive diuretic. We would like to switch to intravenous furosemide and discontinue intravenous fluid as his ABG has worsened and now, the patient shows some respiratory acidosis. The patient will also require left and right heart catheterization to assess and rule out coronary artery disease and obtain intracardiac filling pressures. Given the presence of heart failure, the patient will require to be on DARÍO inhibitors or ARBs once the renal function allows and the patient's blood pressure permits. 2. Acute systolic and diastolic congestive heart failure per echocardiography data. 3. Possible left ventricular thrombus. A 2D echocardiography reveals a calcified density at the apical wall highly likely to be a thrombus. We will start the patient on heparin drip. 4. Slight elevation of troponin level could be due to myocarditis and underlying pneumonia due to influenza or due to demand ischemia in the setting of coronary artery disease. Second troponin I level stat will be measured. 5. History of diabetes mellitus, untreated. We will continue the patient on aspirin and atorvastatin. I would like to thank, Dr. Martinez, for allowing me to participate in the care of this patient. Tien Stearns M.D. DR: EVITA JOB#: [id number] CC:
[2017-03-02 20:00] VITALS: BP 113/67
[2017-03-02] MEDS ORDERED: Heparin 25,000u/D5W 500ml 500 ML IV SCH (20:00)
[2017-03-02] MEDS ORDERED: Heparin 5000 units/ml inj IV ONE (20:00)
[2017-03-02] MEDS: Furosemide 40mg tab ORAL SCH (21:50)
[2017-03-02] MEDS: Metoprolol Tartrate 12.5mg TAB ORAL SCH (21:51)
[2017-03-02] MEDS: Atorvastatin 80mg tab ORAL SCH (21:51)
--- NOTE | 2017-03-02 22:00 | History and Physical Report ---
DATE OF ADMISSION: 03/01/2017 CHIEF COMPLAINT: Shortness of breath and cough. HISTORY OF PRESENT ILLNESS: This is a 71-year-old gentleman with past medical history significant for diabetes type 2, who was presented to the hospital accompanied with his daughter. He said that he has been having a productive cough, decreased appetite, and shortness of breath over the past two days and progressive worsening. Denies any history of COPD or asthma. Shortly after initial evaluation in the emergency, the patient confirmed to have pneumonia on the chest x-ray and sputum for influenza A was positive and the patient subsequently was admitted to the hospital with acute respiratory failure as well as pneumonia with acute influenza A viral syndrome. Subsequently, the patient was admitted to the hospital for further evaluation and antibiotic therapy. PAST MEDICAL HISTORY AND PAST SURGICAL HISTORY: As above. History of diabetes type 2. MEDICATIONS: At home is significant for diabetic medication was nonspecified. ALLERGIES: No known drug allergies. SOCIAL HISTORY: Denies any smoking, alcohol, or drugs at this time. FAMILY HISTORY: Noncontributory. REVIEW OF SYSTEMS: Mostly as above. Denies any dysuria, frequency, or hematuria. Complained about cough. Denies any hemoptysis or hematochezia. Denies any suicidal or homicidal ideation. Denies any loss of consciousness. PHYSICAL EXAMINATION: VITAL SIGNS: On admission from the ER, temperature 97.2, pulse of 105, respirations 27, and blood pressure 127/90. GENERAL: The patient is awake and responsive, in no acute distress, however, shortness of breath on Ventimask. HEAD AND NECK: Pupils are equal and reactive to the light. Extraocular movements are intact. NECK: Supple. No JVD. LUNGS: Three occasional crackles on the bases. Decreased base of the expiratory wheezes was noted. HEART: S1 and S2. Regular rhythm. No murmur or gallops. ABDOMEN: Soft, nondistended, and nontender. Positive bowel sounds. EXTREMITIES: No cyanosis, clubbing, or edema. NEUROLOGIC: Cranial nerves II through XII are grossly intact. Motor is 5/5 in all extremities. LABORATORY AND DIAGNOSTIC DATA: On admission, WBC 15.4, hemoglobin 15, hematocrit 48, and platelets 194. ABG; pH of 7.455, pCO2 of 34, pO2 of 112, and saturating 97%. Sodium 136, potassium 4.2, chloride 96, bicarbonate 29, BUN 19, creatinine 0.9, and glucose is 397. Lactic acid is 4.10. The patient's troponin 0.930. ProBNP of 7715. The patient's influenza screening was positive for influenza A. Chest x-ray was noted to be extensive bilateral diffuse parenchymal infiltrate versus edema and cardiomegaly. Repeat EKG showed stable and slightly worsening bilateral diffuse interstitial as well as airspace infiltrate versus edema probably with small left pleural effusion. EKG, sinus tachy ventricular rate of 105. No ST elevation was at left axis and left atrial enlargement. The patient has left ventricular straining. Echocardiogram preliminary result showed the ejection fraction of 30% to 35%. No evidence of the left ventricular hypertrophy. No evidence of the pericardial or pleural effusion. ASSESSMENT: 1. Acute pneumonia. 2. Acute respiratory failure. 3. Influenza A upper respiratory viral infection. 4. Acute congestive heart failure exacerbation. 5. Diabetes type 2. 6. Mildly elevated troponin, possible acute coronary syndrome versus demand ischemia. PLAN: Admit the patient to [facility]. Follow up with broad-spectrum antibiotics with vancomycin and Unasyn. We will start the patient on Tamiflu and Lasix. Discussed with the family member at the bedside. Monitor laboratory, cardiac enzyme and aspirin. Follow up with chest x-ray. Dr. Avila, Pulmonary Critical Care and Infectious Disease consultation with Dr. Nava. Osmel Martinez M.D. DR: KHUSHBU JOB#: [id number] CC:
[2017-03-02] MEDS: Heparin 25,000u/D5W 500ml 500 ML IV SCH (23:50)
[2017-03-03] VITALS: BP 101/63
[2017-03-03 04:00] VITALS: BP 130/84
[2017-03-03] MEDS: Ampicillin/Sulbactam Sod 3 GM in NS 110 ML IVPB SCH ×3 (06:14→17:59)
[2017-03-03] MEDS ORDERED: Heparin 25,000u/D5W 500ml 500 ML IV SCH (07:15)
[2017-03-03 08:00] VITALS: BP 121/91
[2017-03-03] MEDS ORDERED: Heparin 5000 units/ml inj IV ONE (08:00)
[2017-03-03] MEDS: Albuterol/Ipratropium 3ml neb HHN PRN (08:27)
[2017-03-03 08:35] LABS: HEMATOCRIT 45.3 % (42.0-52.0); MEAN CORPUSCULAR VOLUME 97 FL (80-99); PLATELET COUNT 216 K/UL (150-450); RED BLOOD COUNT 4.66 M/UL (4.70-6.10); RED CELL DISTRIBUTION WIDTH 11.6 % (11.6-14.8); WHITE BLOOD COUNT 14.8 K/UL (4.8-10.8)
[2017-03-03 08:43] LABS: INR 1.2 (0.9-1.1)
[2017-03-03] MEDS: Pantoprazole Inj IVP SCH (09:06)
[2017-03-03] MEDS: Furosemide 40mg tab ORAL SCH ×2 (09:07→21:50)
[2017-03-03] MEDS: Aspirin Baby 81mg ORAL SCH (09:07)
[2017-03-03] MEDS: Metoprolol Tartrate 12.5mg TAB ORAL SCH ×2 (09:08→21:51)
[2017-03-03 09:39] LABS: ALANINE AMINOTRANSFERASE 16 U/L (12-78); ALBUMIN 2.3 G/DL (3.4-5.0); ALBUMIN/GLOBULIN RATIO 0.7 (1.0-2.7); ALKALINE PHOSPHATASE 71 U/L (46-116); ANION GAP 17 mmol/L (5-15); ASPARTATE AMINO TRANSFERASE 22 U/L (15-37); BILIRUBIN,TOTAL 0.9 MG/DL (0.2-1.0); BLOOD UREA NITROGEN 29 mg/dL (7-18); CALCIUM 7.2 MG/DL (8.5-10.1); CARBON DIOXIDE 21 MMOL/L (21-32); CHLORIDE 102 MMOL/L (98-107); CHOLESTEROL 125 MG/DL (< 200); CREATININE 0.9 MG/DL (0.55-1.30); PHOSPHORUS 3.3 MG/DL (2.5-4.9); POTASSIUM 4.3 MMOL/L (3.5-5.1); SODIUM 140 MMOL/L (136-145)
[2017-03-03] MEDS: Oseltamivir 75mg cap ORAL SCH ×2 (09:53→17:59)
[2017-03-03 12:00] VITALS: BP 126/86
--- NOTE | 2017-03-03 14:17 | Infectious Diseases Prog Note ---
Assessment/Plan Assessment/Plan Assessment/Plan: Assessment: Influenza A infection -possible bacterial superinfection -CXR: Extensive bilateral diffuse parenchymal infiltrates versus edema. Correlate with clinical findings -sp cx p Leukocytosis, -afebrile -Bcx p Dm2 Plan: -Continue Tamiflu # 3/5-7 - Unasyn d# 2 for possible concomitant bacterial PNA -03/02 SP D/C IV Vanco #2, Amikacin #1 -03/01 SP Levaquin x1, Ertapenem x1 -f/u cx -Monitor CBC/BMP, temperatures -droplet precautions Subjective Constitutional: Denies: no symptoms, fever, chills, fatigue, anorexia, drenching sweats, other Allergies: Coded Allergies: No Known Allergies (Unverified , 03/01/17) Objective Vital Signs Last 24 Hour Vital Signs Date Time Temp Pulse Resp B/P (MAP) Pulse Ox O2 Delivery O2 Flow Rate FiO2 03/03/17 12:19 108 03/03/17 12:00 97.5 96 20 126/86 95 Venturi Mask 55 03/03/17 09:08 103 121/91 03/03/17 08:50 103 03/03/17 08:34 102 24 96 Venturi Mask 14.0 55 03/03/17 08:34 55 03/03/17 08:29 Venturi Mask 14.0 55 03/03/17 08:29 94 Non-Rebreather 15.0 100 03/03/17 08:28 101 24 94 Venturi Mask 14.0 55 03/03/17 08:27 101 24 Non-Rebreather 15.0 100 03/03/17 08:00 97.7 100 20 121/91 92 Venturi Mask 55 03/03/17 04:00 98.0 115 32 130/84 93 Venturi Mask 03/03/17 04:00 99.1 115 32 130/84 94 Venturi Mask 55 03/03/17 04:00 98 03/03/17 00:00 94 03/03/17 00:00 99.2 104 32 101/63 94 Venturi Mask 03/02/17 21:51 108 113/67 03/02/17 20:00 98.2 108 22 113/67 91 Venturi Mask 03/02/17 20:00 105 03/02/17 19:04 Non-Rebreather 15.0 100 03/02/17 19:04 104 24 Non-Rebreather 15.0 100 03/02/17 19:04 94 Non-Rebreather 15.0 100 03/02/17 16:41 111 23 93 Venturi Mask 14.0 55 03/02/17 16:31 100 03/02/17 16:31 109 24 88 Venturi Mask 14.0 55 03/02/17 16:00 97.9 99 25 110/72 95 Venturi Mask 03/02/17 16:00 109 Height (Feet): 5 Height (Inches): 5.00 Weight (Pounds): 165 HEENT: anicteric Respiratory/Chest: lungs clear Cardiovascular: regular rhythm Abdomen: soft, non tender Microbiology Date/Time Source Procedure Growth Status 03/01/17 10:30 Blood Blood Culture - Preliminary NO GROWTH AFTER 48 HOURS Resulted 03/01/17 10:30 Blood Blood Culture - Preliminary NO GROWTH AFTER 48 HOURS Resulted 03/01/17 23:30 Nasopharynx Influenza Types A,B Antigen (ERIN) - Final Complete 03/01/17 12:02 Nasal Nares MRSA Culture - Final NO METHICILLIN RESISTANT STAPH AUREUS... Complete 03/01/17 06:40 Sputum Gram Stain - Final Resulted 03/01/17 06:40 Sputum Sputum Culture - Preliminary NORMAL UPPER RESPIRATORY ANGELLA AT 24 ... Resulted 03/01/17 12:02 Rectum VRE Culture - Final NO VANCOMYCIN RESISTANT ENTEROCOCCUS ... Complete Laboratory Tests Test 03/02/17 19:10 03/02/17 21:20 03/03/17 07:29 Troponin I 1.246 ng/mL (0.000-0.056) 1.126 ng/mL (0.000-0.056) Activated Partial Thromboplast Time 128 SEC (23-33) H 92 SEC (23-33) H White Blood Count 14.8 K/UL (4.8-10.8) H Red Blood Count 4.66 M/UL (4.70-6.10) L Hemoglobin 15.0 G/DL (14.2-18.0) Hematocrit 45.3 % (42.0-52.0) Mean Corpuscular Volume 97 FL (80-99) Mean Corpuscular Hemoglobin 32.1 PG (27.0-31.0) H Mean Corpuscular Hemoglobin Concent 33.0 G/DL (32.0-36.0) Red Cell Distribution Width 11.6 % (11.6-14.8) Platelet Count 216 K/UL (150-450) Mean Platelet Volume 7.9 FL (6.5-10.1) Neutrophils (%) (Auto) % (45.0-75.0) Lymphocytes (%) (Auto) % (20.0-45.0) Monocytes (%) (Auto) % (1.0-10.0) Eosinophils (%) (Auto) % (0.0-3.0) Basophils (%) (Auto) % (0.0-2.0) Neutrophils % (Manual) Pending Lymphocytes % (Manual) Pending Platelet Estimate Pending Platelet Morphology Pending Prothrombin Time 12.4 SEC (9.30-11.50) H Prothromb Time International Ratio 1.2 (0.9-1.1) H Sodium Level 140 MMOL/L (136-145) Potassium Level 4.3 MMOL/L (3.5-5.1) Chloride Level 102 MMOL/L (98-107) Carbon Dioxide Level 21 MMOL/L (21-32) Anion Gap 17 mmol/L (5-15) H Blood Urea Nitrogen 29 mg/dL (7-18) H Creatinine 0.9 MG/DL (0.55-1.30) Estimat Glomerular Filtration Rate mL/min (>60) Glucose Level 321 MG/DL (74-106) H Lactic Acid Level 2.50 mmol/L (0.66-2.22) H Calcium Level 7.2 MG/DL (8.5-10.1) L Phosphorus Level 3.3 MG/DL (2.5-4.9) Magnesium Level 2.4 MG/DL (1.8-2.4) Total Bilirubin 0.9 MG/DL (0.2-1.0) Aspartate Amino Transf (AST/SGOT) 22 U/L (15-37) Alanine Aminotransferase (ALT/SGPT) 16 U/L (12-78) Alkaline Phosphatase 71 U/L (46-116) Total Protein 5.8 G/DL (6.4-8.2) L Albumin 2.3 G/DL (3.4-5.0) L Globulin 3.5 g/dL Albumin/Globulin Ratio 0.7 (1.0-2.7) L Cholesterol Level 125 MG/DL (< 200) Thyroid Stimulating Hormone (TSH) 0.369 uiU/mL (0.358-3.740) Current Medications Medications (Trade) Dose Ordered Sig/Channing Route PRN Reason Start Time Stop Time Status Last Admin Dose Admin Acetaminophen (Tylenol) 650 mg Q4H PRN ORAL fever 03/01/17 11:45 03/31/17 11:44 Albuterol/ Ipratropium (Albuterol/ Ipratropium) 3 ml Q4H PRN HHN Shortness of Breath 03/01/17 11:45 03/06/17 11:44 03/03/17 08:27 Ampicillin Sodium/ Sulbactam Sodium 3 gm/Sodium Chloride 110 ml @ 220 mls/hr Q6HR IVPB 03/02/17 18:00 03/09/17 17:59 03/03/17 13:17 Aspirin (ASA) 81 mg DAILY ORAL 03/02/17 16:30 04/01/17 16:29 03/03/17 09:07 Atorvastatin Calcium (Lipitor) 80 mg BEDTIME ORAL 03/02/17 21:00 04/01/17 20:59 03/02/17 21:51 Furosemide (Lasix) 40 mg EVERY 12 HOURS ORAL 03/02/17 21:00 04/01/17 20:59 03/03/17 09:07 Heparin Sodium/ Dextrose 500 ml @ 13.472 mls/ hr adjust per protocol IV 03/02/17 23:00 04/01/17 22:59 03/02/17 23:50 Metoprolol Tartrate (Lopressor) 12.5 mg Q12HR ORAL 03/02/17 21:00 04/01/17 20:59 03/03/17 09:08 Morphine Sulfate (Morphine Sulfate) 2 mg Q4H PRN IVP Severe Pain (Pain Scale 7-10) 03/01/17 11:45 03/08/17 11:44 Ondansetron HCl (Zofran) 4 mg Q6H PRN IVP Nausea & Vomiting 03/01/17 11:45 03/31/17 11:44 Oseltamivir Phosphate (Tamiflu) 75 mg TWICE A DAY ORAL 03/01/17 22:00 1/9/18 21:59 03/03/17 09:53 Pantoprazole (Protonix) 40 mg DAILY IVP 03/02/17 09:00 04/01/17 08:59 03/03/17 09:06 ALIREZA REDDY M.D. Mar 03, 2017 14:17
--- NOTE | 2017-03-03 15:35 | Internal Med Progress Note ---
Subjective Date of Service: Mar 03, 2017 Physician Name Jacque Rodarte Attending Physician Osmel Martinez MD Current Medications Medications (Trade) Dose Ordered Sig/Channing Route PRN Reason Start Time Stop Time Status Last Admin Dose Admin Acetaminophen (Tylenol) 650 mg Q4H PRN ORAL fever 03/01/17 11:45 03/31/17 11:44 Albuterol/ Ipratropium (Albuterol/ Ipratropium) 3 ml Q4H PRN HHN Shortness of Breath 03/01/17 11:45 03/06/17 11:44 03/03/17 08:27 Ampicillin Sodium/ Sulbactam Sodium 3 gm/Sodium Chloride 110 ml @ 220 mls/hr Q6HR IVPB 03/02/17 18:00 03/09/17 17:59 03/03/17 13:17 Aspirin (ASA) 81 mg DAILY ORAL 03/02/17 16:30 04/01/17 16:29 03/03/17 09:07 Atorvastatin Calcium (Lipitor) 80 mg BEDTIME ORAL 03/02/17 21:00 04/01/17 20:59 03/02/17 21:51 Furosemide (Lasix) 40 mg EVERY 12 HOURS ORAL 03/02/17 21:00 04/01/17 20:59 03/03/17 09:07 Heparin Sodium/ Dextrose 500 ml @ 13.472 mls/ hr adjust per protocol IV 03/02/17 23:00 04/01/17 22:59 03/02/17 23:50 Metoprolol Tartrate (Lopressor) 12.5 mg Q12HR ORAL 03/02/17 21:00 04/01/17 20:59 03/03/17 09:08 Morphine Sulfate (Morphine Sulfate) 2 mg Q4H PRN IVP Severe Pain (Pain Scale 7-10) 03/01/17 11:45 03/08/17 11:44 Ondansetron HCl (Zofran) 4 mg Q6H PRN IVP Nausea & Vomiting 03/01/17 11:45 03/31/17 11:44 Oseltamivir Phosphate (Tamiflu) 75 mg TWICE A DAY ORAL 03/01/17 22:00 03/06/17 21:59 03/03/17 09:53 Pantoprazole (Protonix) 40 mg DAILY IVP 03/02/17 09:00 04/01/17 08:59 03/03/17 09:06 Allergies: Coded Allergies: No Known Allergies (Unverified , 03/01/17) ROS Limited/Unobtainable: No Constitutional: Reports: no symptoms HEENT: Reports: no symptoms Cardiovascular: Reports: no symptoms Respiratory: Reports: shortness of breath Gastrointestinal/Abdominal: Reports: no symptoms Genitourinary: Reports: no symptoms Neurologic/Psychiatric: Reports: no symptoms Subjective 71 YO M admitted with shortness of breath. Now Influenza A pneumonia and mariano heart failure. Cover for Int Med-Dr Martinez. SEBASTIAN. Tolerating venturi-mask Objective Last Vital Signs Date Time Temp Pulse Resp B/P (MAP) Pulse Ox O2 Delivery O2 Flow Rate FiO2 03/03/17 12:19 108 03/03/17 12:00 97.5 20 126/86 95 Venturi Mask 55 03/03/17 08:34 14.0 General Appearance: alert, moderate distress, thin EENT: PERRL/EOMI, normal ENT inspection Neck: non-tender, normal alignment, supple, normal inspection Cardiovascular: normal peripheral pulses, normal rate, regular rhythm, no gallop/murmur, no JVD Respiratory/Chest: chest wall non-tender, respiratory distress, accessory muscle use, crackles/rales, rhonchi - bilaterally, expiratory wheezing Abdomen: normal bowel sounds, non tender, soft, no organomegaly, no mass Extremities: normal range of motion, non-tender 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, no motor/sensory deficits Skin: normal pigmentation, warm/dry Laboratory Tests Test 03/02/17 19:10 03/02/17 21:20 03/03/17 07:29 Troponin I 1.246 ng/mL (0.000-0.056) 1.126 ng/mL (0.000-0.056) Activated Partial Thromboplast Time 128 SEC (23-33) H 92 SEC (23-33) H White Blood Count 14.8 K/UL (4.8-10.8) H Red Blood Count 4.66 M/UL (4.70-6.10) L Hemoglobin 15.0 G/DL (14.2-18.0) Hematocrit 45.3 % (42.0-52.0) Mean Corpuscular Volume 97 FL (80-99) Mean Corpuscular Hemoglobin 32.1 PG (27.0-31.0) H Mean Corpuscular Hemoglobin Concent 33.0 G/DL (32.0-36.0) Red Cell Distribution Width 11.6 % (11.6-14.8) Platelet Count 216 K/UL (150-450) Mean Platelet Volume 7.9 FL (6.5-10.1) Neutrophils (%) (Auto) % (45.0-75.0) Lymphocytes (%) (Auto) % (20.0-45.0) Monocytes (%) (Auto) % (1.0-10.0) Eosinophils (%) (Auto) % (0.0-3.0) Basophils (%) (Auto) % (0.0-2.0) Differential Total Cells Counted 100 Neutrophils % (Manual) 88 % (45-75) H Lymphocytes % (Manual) 7 % (20-45) L Monocytes % (Manual) 5 % (1-10) Eosinophils % (Manual) 0 % (0-3) Basophils % (Manual) 0 % (0-2) Band Neutrophils 0 % (0-8) Platelet Estimate Adequate Platelet Morphology Normal Red Blood Cell Morphology Normal Prothrombin Time 12.4 SEC (9.30-11.50) H Prothromb Time International Ratio 1.2 (0.9-1.1) H Sodium Level 140 MMOL/L (136-145) Potassium Level 4.3 MMOL/L (3.5-5.1) Chloride Level 102 MMOL/L (98-107) Carbon Dioxide Level 21 MMOL/L (21-32) Anion Gap 17 mmol/L (5-15) H Blood Urea Nitrogen 29 mg/dL (7-18) H Creatinine 0.9 MG/DL (0.55-1.30) Estimat Glomerular Filtration Rate mL/min (>60) Glucose Level 321 MG/DL (74-106) H Lactic Acid Level 2.50 mmol/L (0.66-2.22) H Calcium Level 7.2 MG/DL (8.5-10.1) L Phosphorus Level 3.3 MG/DL (2.5-4.9) Magnesium Level 2.4 MG/DL (1.8-2.4) Total Bilirubin 0.9 MG/DL (0.2-1.0) Aspartate Amino Transf (AST/SGOT) 22 U/L (15-37) Alanine Aminotransferase (ALT/SGPT) 16 U/L (12-78) Alkaline Phosphatase 71 U/L (46-116) Total Protein 5.8 G/DL (6.4-8.2) L Albumin 2.3 G/DL (3.4-5.0) L Globulin 3.5 g/dL Albumin/Globulin Ratio 0.7 (1.0-2.7) L Cholesterol Level 125 MG/DL (< 200) Thyroid Stimulating Hormone (TSH) 0.369 uiU/mL (0.358-3.740) Microbiology Date/Time Source Procedure Growth Status 03/01/17 10:30 Blood Blood Culture - Preliminary NO GROWTH AFTER 48 HOURS Resulted 03/01/17 10:30 Blood Blood Culture - Preliminary NO GROWTH AFTER 48 HOURS Resulted 03/01/17 23:30 Nasopharynx Influenza Types A,B Antigen (ERIN) - Final Complete 03/01/17 12:02 Nasal Nares MRSA Culture - Final NO METHICILLIN RESISTANT STAPH AUREUS... Complete 03/01/17 06:40 Sputum Gram Stain - Final Resulted 03/01/17 06:40 Sputum Sputum Culture - Preliminary NORMAL UPPER RESPIRATORY ANGELLA AT 24 ... Resulted 03/01/17 12:02 Rectum VRE Culture - Final NO VANCOMYCIN RESISTANT ENTEROCOCCUS ... Complete Intake and Output 03/02/17 03/03/17 19:00 07:00 Intake Total 260 ml 217.776 ml Output Total 600 ml 900 ml Balance -340 ml -682.224 ml Intake Oral 150 ml IV Total 110 ml 217.776 ml Output Urine Total 600 ml 900 ml Assessment/Plan Problem List: (1) Diabetes mellitus, type II (2) HTN (hypertension) Assessment & Plan: continue lopressor (3) Hypercholesterolemia Assessment & Plan: Cont lipitor (4) Bilateral pneumonia Assessment & Plan: Continue unasyn (5) Influenza A Assessment & Plan: Continue tamiflu per ID (6) Acute respiratory failure Assessment & Plan: Tolerating venturi mask (7) CHF (congestive heart failure) Assessment & Plan: LVEF=30%. See cardiology note. Status: not improved JACQUE RODARTE Mar 03, 2017 15:35
[2017-03-03 16:00] VITALS: BP 113/63
--- NOTE | 2017-03-03 16:07 | Pulmonology Progress Note ---
Assessment/Plan Assessment/Plan ASSESSMENT Acute hypoxemic RF requiring NRM Likely sepsis influenza A probably concomitant bilateral PNA Elevated troponin ( due to myocarditis vs demand ischemia) possible NSTEMI Pulmonary edema acute systolic and diastolic CHF probably LV thrombus DM PLAN OF CARE SEBASTIAN weaned down to VM 55% titrate O2 to keep sat above 90% pulm toilet abx + Tamiflu ID follows sputum cx- negative, + influenza screen, bl cx prel negative Fup with CXR, pro BNP Troponin with small trend down ECHO with EF 30-35% cardio follows IV diuresis, monitor volumes and cardiorenal parameters Per cardio pt will need L and R heart catheterization Heparin gtt for presumed LV thrombus as per cardio Medical management of CHF with BB, Lasix, add DARÍO per cardio discretion Continue ASA and statin Per cardio-slight elevation in troponin likely 2 to myocarditis and underlying PNA or demand ischemia in setting of CAD GI prophylaxis BS high, start Levemir and SSI, check HgA1c change diet to diabetic case discussed and evaluated by supervising physician Subjective Allergies: Coded Allergies: No Known Allergies (Unverified , 03/01/17) Subjective on VM 55% no signs of resp distress reports feeling better persistent leukocytosis troponin with small trend down BS high Objective Last 24 Hour Vital Signs Date Time Temp Pulse Resp B/P (MAP) Pulse Ox O2 Delivery O2 Flow Rate FiO2 03/03/17 12:19 108 03/03/17 12:00 97.5 96 20 126/86 95 Venturi Mask 55 03/03/17 09:08 103 121/91 03/03/17 08:50 103 03/03/17 08:34 102 24 96 Venturi Mask 14.0 55 03/03/17 08:34 55 03/03/17 08:29 Venturi Mask 14.0 55 03/03/17 08:29 94 Non-Rebreather 15.0 100 03/03/17 08:28 101 24 94 Venturi Mask 14.0 55 03/03/17 08:27 101 24 Non-Rebreather 15.0 100 03/03/17 08:00 97.7 100 20 121/91 92 Venturi Mask 55 03/03/17 04:00 98.0 115 32 130/84 93 Venturi Mask 03/03/17 04:00 99.1 115 32 130/84 94 Venturi Mask 55 03/03/17 04:00 98 03/03/17 00:00 94 03/03/17 00:00 99.2 104 32 101/63 94 Venturi Mask 03/02/17 21:51 108 113/67 03/02/17 20:00 98.2 108 22 113/67 91 Venturi Mask 03/02/17 20:00 105 03/02/17 19:04 Non-Rebreather 15.0 100 03/02/17 19:04 104 24 Non-Rebreather 15.0 100 03/02/17 19:04 94 Non-Rebreather 15.0 100 03/02/17 16:41 111 23 93 Venturi Mask 14.0 55 03/02/17 16:31 100 03/02/17 16:31 109 24 88 Venturi Mask 14.0 55 03/02/17 16:00 97.9 99 25 110/72 95 Venturi Mask 03/02/17 16:00 109 Intake and Output 03/02/17 03/03/17 19:00 07:00 Intake Total 260 ml 217.776 ml Output Total 600 ml 900 ml Balance -340 ml -682.224 ml Intake Oral 150 ml IV Total 110 ml 217.776 ml Output Urine Total 600 ml 900 ml General Appearance: no acute distress, other - A/A/O x 3 male in NAD HEENT: normocephalic, atraumatic, anicteric, PERRL, other - VM 55% Respiratory/Chest: no respiratory distress, rhonchi - few isolated rhonchi Cardiovascular: normal peripheral pulses, regular rhythm - ST on tele , no JVD , tachycardia Abdomen: normal bowel sounds, soft, non tender, non distended Extremities: no edema, pedal pulses normal Neurologic/Psychiatric: no motor/sensory deficits, alert, oriented x 3, responsive Musculoskeletal: normal muscle bulk Microbiology Date/Time Source Procedure Growth Status 03/01/17 10:30 Blood Blood Culture - Preliminary NO GROWTH AFTER 48 HOURS Resulted 03/01/17 10:30 Blood Blood Culture - Preliminary NO GROWTH AFTER 48 HOURS Resulted 03/01/17 23:30 Nasopharynx Influenza Types A,B Antigen (ERIN) - Final Complete 03/01/17 12:02 Nasal Nares MRSA Culture - Final NO METHICILLIN RESISTANT STAPH AUREUS... Complete 03/01/17 06:40 Sputum Gram Stain - Final Resulted 03/01/17 06:40 Sputum Sputum Culture - Preliminary NORMAL UPPER RESPIRATORY ANGELLA AT 24 ... Resulted 03/01/17 12:02 Rectum VRE Culture - Final NO VANCOMYCIN RESISTANT ENTEROCOCCUS ... Complete Laboratory Tests 03/02/17 19:10: Troponin I 1.246H 03/02/17 21:20: Activated Partial Thromboplast Time 128H 03/03/17 07:29: Troponin I 1.126H, Activated Partial Thromboplast Time 92H, White Blood Count 14.8H, Red Blood Count 4.66L, Hemoglobin 15.0, Hematocrit 45.3, Mean Corpuscular Volume 97, Mean Corpuscular Hemoglobin 32.1H, Mean Corpuscular Hemoglobin Concent 33.0, Red Cell Distribution Width 11.6, Platelet Count 216, Mean Platelet Volume 7.9, Neutrophils (%) (Auto) , Lymphocytes (%) (Auto) , Monocytes (%) (Auto) , Eosinophils (%) (Auto) , Basophils (%) (Auto) , Differential Total Cells Counted 100, Neutrophils % (Manual) 88H, Lymphocytes % (Manual) 7L, Monocytes % (Manual) 5, Eosinophils % (Manual) 0, Basophils % ( Manual) 0, Band Neutrophils 0, Platelet Estimate Adequate, Platelet Morphology Normal, Red Blood Cell Morphology Normal, Prothrombin Time 12.4H, Prothromb Time International Ratio 1.2H, Sodium Level 140, Potassium Level 4.3, Chloride Level 102, Carbon Dioxide Level 21, Anion Gap 17H, Blood Urea Nitrogen 29H, Creatinine 0.9, Estimat Glomerular Filtration Rate , Glucose Level 321H, Lactic Acid Level 2.50H, Calcium Level 7.2L, Phosphorus Level 3.3, Magnesium Level 2.4 , Total Bilirubin 0.9, Aspartate Amino Transf (AST/SGOT) 22, Alanine Aminotransferase (ALT/SGPT) 16, Alkaline Phosphatase 71, Total Protein 5.8L, Albumin 2.3L, Globulin 3.5, Albumin/Globulin Ratio 0.7L, Cholesterol Level 125, Thyroid Stimulating Hormone (TSH) 0.369 Current Medications Medications (Trade) Dose Ordered Sig/Channing Route PRN Reason Start Time Stop Time Status Last Admin Dose Admin Acetaminophen (Tylenol) 650 mg Q4H PRN ORAL fever 03/01/17 11:45 03/31/17 11:44 Albuterol/ Ipratropium (Albuterol/ Ipratropium) 3 ml Q4H PRN HHN Shortness of Breath 03/01/17 11:45 03/06/17 11:44 03/03/17 08:27 Ampicillin Sodium/ Sulbactam Sodium 3 gm/Sodium Chloride 110 ml @ 220 mls/hr Q6HR IVPB 03/02/17 18:00 03/09/17 17:59 03/03/17 13:17 Aspirin (ASA) 81 mg DAILY ORAL 03/02/17 16:30 04/01/17 16:29 03/03/17 09:07 Atorvastatin Calcium (Lipitor) 80 mg BEDTIME ORAL 03/02/17 21:00 04/01/17 20:59 03/02/17 21:51 Furosemide (Lasix) 40 mg EVERY 12 HOURS ORAL 03/02/17 21:00 04/01/17 20:59 03/03/17 09:07 Heparin Sodium/ Dextrose 500 ml @ 13.472 mls/ hr adjust per protocol IV 03/02/17 23:00 04/01/17 22:59 03/02/17 23:50 Metoprolol Tartrate (Lopressor) 12.5 mg Q12HR ORAL 03/02/17 21:00 04/01/17 20:59 03/03/17 09:08 Morphine Sulfate (Morphine Sulfate) 2 mg Q4H PRN IVP Severe Pain (Pain Scale 7-10) 03/01/17 11:45 03/08/17 11:44 Ondansetron HCl (Zofran) 4 mg Q6H PRN IVP Nausea & Vomiting 03/01/17 11:45 03/31/17 11:44 Oseltamivir Phosphate (Tamiflu) 75 mg TWICE A DAY ORAL 03/01/17 22:00 03/06/17 21:59 03/03/17 09:53 Pantoprazole (Protonix) 40 mg DAILY IVP 03/02/17 09:00 04/01/17 08:59 03/03/17 09:06 Mitzy Sewell NP ([facility]) Mar 03, 2017 16:07
[2017-03-03] MEDS: NovoLOG Insulin Flexpen SUBQ SCH ×2 (18:06→21:00)
[2017-03-03 20:00] VITALS: BP 114/67
[2017-03-03] MEDS ORDERED: Levemir Flexpen SUBQ SCH (21:00)
[2017-03-03] MEDS: Atorvastatin 80mg tab ORAL SCH (21:51)
--- NOTE | 2017-03-03 23:29 | Cardiology Progress Note ---
Assessment/Plan Assessment/Plan 1. Pulmonary edema. Although one believes this to be due to influenza virus as the titer was positive, a 2D echocardiography result just arrived and revealed left ventricular dilatation with wall motion abnormalities in the anterolateral, anterior, and anteroseptal wall suggestive of possible infarct in the LAD distribution. Left ventricular ejection fraction is calculated as about 30%. The patient will also require left and right heart catheterization to assess and rule out coronary artery disease and obtain intracardiac filling pressures, transfer order has been written. 2. Acute systolic and diastolic congestive heart failure per echocardiography data. 3. Possible left ventricular thrombus. A 2D echocardiography reveals a calcified density at the apical wall highly likely to be a thrombus. Continue on heparin drip. 4. Slight elevation of troponin level could be due to myocarditis and underlying pneumonia due to influenza or due to demand ischemia in the setting of coronary artery disease.Second troponin I level stat will be measured. 5. History of diabetes mellitus, untreated. We will continue the patient on aspirin and atorvastatin. Subjective Subjective Sinus tachycardia at 101 on venturi mask. Objective Last 24 Hour Vital Signs Date Time Temp Pulse Resp B/P (MAP) Pulse Ox O2 Delivery O2 Flow Rate FiO2 03/03/17 21:51 105 113/63 03/03/17 20:00 97.7 101 32 114/67 90 Venturi Mask 03/03/17 16:24 105 03/03/17 16:00 97.7 94 21 113/63 Venturi Mask 55 03/03/17 12:19 108 03/03/17 12:00 97.5 96 20 126/86 95 Venturi Mask 55 03/03/17 09:08 103 121/91 03/03/17 08:50 103 03/03/17 08:34 102 24 96 Venturi Mask 14.0 55 03/03/17 08:34 55 03/03/17 08:29 Venturi Mask 14.0 55 03/03/17 08:29 94 Non-Rebreather 15.0 100 03/03/17 08:28 101 24 94 Venturi Mask 14.0 55 03/03/17 08:27 101 24 Non-Rebreather 15.0 100 03/03/17 08:00 97.7 100 20 121/91 92 Venturi Mask 55 03/03/17 04:00 98.0 115 32 130/84 93 Venturi Mask 03/03/17 04:00 99.1 115 32 130/84 94 Venturi Mask 55 03/03/17 04:00 98 03/03/17 00:00 94 03/03/17 00:00 99.2 104 32 101/63 94 Venturi Mask Intake and Output 03/02/17 03/03/17 19:00 07:00 Intake Total 260 ml 217.776 ml Output Total 600 ml 900 ml Balance -340 ml -682.224 ml Intake Oral 150 ml IV Total 110 ml 217.776 ml Output Urine Total 600 ml 900 ml 2D Echo: LVEF ~30%, Inferior and apical septal wall HK, Grade II LVDD ( pseudonormal) Laboratory Tests Test 03/03/17 07:29 White Blood Count 14.8 K/UL (4.8-10.8) H Red Blood Count 4.66 M/UL (4.70-6.10) L Hemoglobin 15.0 G/DL (14.2-18.0) Hematocrit 45.3 % (42.0-52.0) Mean Corpuscular Volume 97 FL (80-99) Mean Corpuscular Hemoglobin 32.1 PG (27.0-31.0) H Mean Corpuscular Hemoglobin Concent 33.0 G/DL (32.0-36.0) Red Cell Distribution Width 11.6 % (11.6-14.8) Platelet Count 216 K/UL (150-450) Mean Platelet Volume 7.9 FL (6.5-10.1) Neutrophils (%) (Auto) % (45.0-75.0) Lymphocytes (%) (Auto) % (20.0-45.0) Monocytes (%) (Auto) % (1.0-10.0) Eosinophils (%) (Auto) % (0.0-3.0) Basophils (%) (Auto) % (0.0-2.0) Differential Total Cells Counted 100 Neutrophils % (Manual) 88 % (45-75) H Lymphocytes % (Manual) 7 % (20-45) L Monocytes % (Manual) 5 % (1-10) Eosinophils % (Manual) 0 % (0-3) Basophils % (Manual) 0 % (0-2) Band Neutrophils 0 % (0-8) Platelet Estimate Adequate Platelet Morphology Normal Red Blood Cell Morphology Normal Prothrombin Time 12.4 SEC (9.30-11.50) H Prothromb Time International Ratio 1.2 (0.9-1.1) H Activated Partial Thromboplast Time 92 SEC (23-33) H Sodium Level 140 MMOL/L (136-145) Potassium Level 4.3 MMOL/L (3.5-5.1) Chloride Level 102 MMOL/L (98-107) Carbon Dioxide Level 21 MMOL/L (21-32) Anion Gap 17 mmol/L (5-15) H Blood Urea Nitrogen 29 mg/dL (7-18) H Creatinine 0.9 MG/DL (0.55-1.30) Estimat Glomerular Filtration Rate mL/min (>60) Glucose Level 321 MG/DL (74-106) H Lactic Acid Level 2.50 mmol/L (0.66-2.22) H Calcium Level 7.2 MG/DL (8.5-10.1) L Phosphorus Level 3.3 MG/DL (2.5-4.9) Magnesium Level 2.4 MG/DL (1.8-2.4) Total Bilirubin 0.9 MG/DL (0.2-1.0) Aspartate Amino Transf (AST/SGOT) 22 U/L (15-37) Alanine Aminotransferase (ALT/SGPT) 16 U/L (12-78) Alkaline Phosphatase 71 U/L (46-116) Troponin I 1.126 ng/mL (0.000-0.056) Total Protein 5.8 G/DL (6.4-8.2) L Albumin 2.3 G/DL (3.4-5.0) L Globulin 3.5 g/dL Albumin/Globulin Ratio 0.7 (1.0-2.7) L Cholesterol Level 125 MG/DL (< 200) Thyroid Stimulating Hormone (TSH) 0.369 uiU/mL (0.358-3.740) Microbiology Date/Time Source Procedure Growth Status 03/01/17 10:30 Blood Blood Culture - Preliminary NO GROWTH AFTER 48 HOURS Resulted 03/01/17 10:30 Blood Blood Culture - Preliminary NO GROWTH AFTER 48 HOURS Resulted 03/01/17 23:30 Nasopharynx Influenza Types A,B Antigen (ERIN) - Final Complete 03/01/17 12:02 Nasal Nares MRSA Culture - Final NO METHICILLIN RESISTANT STAPH AUREUS... Complete 03/01/17 06:40 Sputum Gram Stain - Final Resulted 03/01/17 06:40 Sputum Sputum Culture - Preliminary NORMAL UPPER RESPIRATORY ANGELLA AT 24 ... Resulted 03/01/17 12:02 Rectum VRE Culture - Final NO VANCOMYCIN RESISTANT ENTEROCOCCUS ... Complete Objective HEENT: Atraumatic and normocephalic. Anicteric. Pupils are equal, round, and reactive to light and accommodation. Extraocular muscles intact. NECK: JVP less than 5 cm. No carotid bruit. Carotid upstrokes 2+ bilaterally. CARDIOVASCULAR: Normal S1, S2. Tachycardic. No murmurs, gallops, or rubs. PMI is at fourth intercostal space in the midclavicular line. LUNGS: Diminished breath sounds plus bibasilar crackles. ABDOMEN: Soft, nontender, and nondistended. No hepatosplenomegaly. Positive bowel sounds. 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 A 1+ edema around the ankles. NICK FINLEY Mar 03, 2017 23:29
[2017-03-04] VITALS: BP 101/71
[2017-03-04] MEDS: Ampicillin/Sulbactam Sod 3 GM in NS 110 ML IVPB SCH ×3 (01:41→12:01)
[2017-03-04 04:00] VITALS: BP 107/84
[2017-03-04] MEDS: NovoLOG Insulin Flexpen SUBQ SCH ×2 (06:11→12:02)
[2017-03-04 07:46] LABS: HEMATOCRIT 43.4 % (42.0-52.0); HEMOGLOBIN 14.4 G/DL (14.2-18.0); MEAN CORPUSCULAR VOLUME 96 FL (80-99); PLATELET COUNT 212 K/UL (150-450); RED BLOOD COUNT 4.52 M/UL (4.70-6.10); RED CELL DISTRIBUTION WIDTH 11.4 % (11.6-14.8); WHITE BLOOD COUNT 12.3 K/UL (4.8-10.8)
[2017-03-04 07:47] LABS: ANION GAP 4 mmol/L (5-15); BLOOD UREA NITROGEN 24 mg/dL (7-18); CALCIUM 7.1 MG/DL (8.5-10.1); CARBON DIOXIDE 34 MMOL/L (21-32); CHLORIDE 103 MMOL/L (98-107); CREATININE 0.7 MG/DL (0.55-1.30); POTASSIUM 3.5 MMOL/L (3.5-5.1); SODIUM 141 MMOL/L (136-145)
[2017-03-04 08:00] VITALS: BP 99/56
[2017-03-04] MEDS ORDERED: Heparin 5000 units/ml inj IV ONE (08:45)
[2017-03-04] MEDS: Metoprolol Tartrate 12.5mg TAB ORAL SCH (09:00)
[2017-03-04] MEDS: Aspirin Baby 81mg ORAL SCH (09:00)
[2017-03-04] MEDS: Furosemide 40mg tab ORAL SCH (09:30)
[2017-03-04] MEDS: Pantoprazole Inj IVP SCH (09:30)
[2017-03-04] MEDS: Heparin 25,000u/D5W 500ml 500 ML IV SCH (09:39)
[2017-03-04] MEDS: Oseltamivir 75mg cap ORAL SCH (09:48)
[2017-03-04 12:00] VITALS: BP 102/50
--- NOTE | 2017-03-04 12:24 | Pulmonology Progress Note ---
Assessment/Plan Assessment/Plan ASSESSMENT Acute hypoxemic RF requiring NRM Likely sepsis influenza A probably concomitant bilateral PNA Elevated troponin ( due to myocarditis vs demand ischemia) possible NSTEMI Pulmonary edema acute systolic and diastolic CHF probably LV thrombus DM OOC PLAN OF CARE [facility] weaned down to O2 via NC titrate O2 to keep sat above 90% pulm toilet abx + Tamiflu ID follows sputum cx- negative, + influenza screen, bl cx prel negative Fup with CXR in am, pro BNP Troponin with small trend down ECHO with EF 30-35% cardio follows IV diuresis, monitor volumes and cardiorenal parameters Per cardio pt will need L and R heart catheterization Heparin gtt for presumed LV thrombus as per cardio start Coumadin? per Cardo discretion Medical management of CHF with BB, Lasix, add DARÍO per cardio discretion Continue ASA and statin Per cardio-slight elevation in troponin likely 2 to myocarditis and underlying PNA or demand ischemia in setting of CAD GI prophylaxis BS high, increase Levemir and SSI, HgA1c -10.7 not at goal transfer to tele case discussed and evaluated by supervising physician Subjective Allergies: Coded Allergies: No Known Allergies (Unverified , 03/01/17) Subjective weaned down to o2 via NC improving leuk trending down , afebrile BS better after started on Levemir and SS,s till not controlled Objective Last 24 Hour Vital Signs Date Time Temp Pulse Resp B/P (MAP) Pulse Ox O2 Delivery O2 Flow Rate FiO2 03/04/17 09:00 90 99/56 03/04/17 08:00 97.7 100 20 99/56 92 Venturi Mask 55 100 03/04/17 08:00 89 03/04/17 07:14 94 Non-Rebreather 15.0 100 03/04/17 04:00 97.6 98 32 107/84 91 Venturi Mask 03/04/17 03:40 93 03/04/17 00:00 98.1 96 32 101/71 94 Venturi Mask 03/03/17 23:49 95 03/03/17 21:51 105 113/63 03/03/17 20:00 97.7 101 32 114/67 90 Venturi Mask 03/03/17 20:00 100 03/03/17 16:24 105 03/03/17 16:00 97.7 94 21 113/63 Venturi Mask 55 03/03/17 12:19 108 Intake and Output 03/03/17 03/04/17 19:00 07:00 Intake Total 581.664 ml Output Total 700 ml 900 ml Balance -700 ml -318.336 ml Intake Oral 200 ml IV Total 381.664 ml Output Urine Total 700 ml 900 ml # Voids 3 3 # Bowel Movements 1 Objective General Appearance: no acute distress, A/A/O x 3 male in NAD HEENT: normocephalic, atraumatic, anicteric, PERRL,O2 via NC Respiratory/Chest: no respiratory distress, rhonchi - few isolated rhonchi Cardiovascular: normal peripheral pulses, regular rhythm - ST on tele , no JVD , tachycardia Abdomen: normal bowel sounds, soft, non tender, non distended Extremities: no edema, pedal pulses normal Neurologic/Psychiatric: no motor/sensory deficits, alert, oriented x 3, responsive Musculoskeletal: normal muscle bulk Microbiology Date/Time Source Procedure Growth Status 03/01/17 23:30 Nasopharynx Influenza Types A,B Antigen (ERIN) - Final Complete Laboratory Tests 03/04/17 06:38: White Blood Count 12.3H, Red Blood Count 4.52L, Hemoglobin 14.4, Hematocrit 43.4 , Mean Corpuscular Volume 96, Mean Corpuscular Hemoglobin 31.8H, Mean Corpuscular Hemoglobin Concent 33.2, Red Cell Distribution Width 11.4L, Platelet Count 212, Mean Platelet Volume 7.7, Neutrophils (%) (Auto) , Lymphocytes (%) (Auto) , Monocytes (%) (Auto) , Eosinophils (%) (Auto) , Basophils (%) (Auto) , Differential Total Cells Counted 100, Neutrophils % ( Manual) 87H, Lymphocytes % (Manual) 9L, Monocytes % (Manual) 4, Eosinophils % ( Manual) 0, Basophils % (Manual) 0, Band Neutrophils 0, Platelet Estimate Adequate, Platelet Morphology Normal, Red Blood Cell Morphology Normal, Activated Partial Thromboplast Time 64H, Sodium Level 141, Potassium Level 3.5, Chloride Level 103, Carbon Dioxide Level 34H, Anion Gap 4L, Blood Urea Nitrogen 24H, Creatinine 0.7, Estimat Glomerular Filtration Rate , Glucose Level 203#H, Hemoglobin A1c 10.6H, Calcium Level 7.1L, Pro-B-Type Natriuretic Peptide 9578H Current Medications Medications (Trade) Dose Ordered Sig/Channing Route PRN Reason Start Time Stop Time Status Last Admin Dose Admin Acetaminophen (Tylenol) 650 mg Q4H PRN ORAL fever 03/01/17 11:45 03/31/17 11:44 Albuterol/ Ipratropium (Albuterol/ Ipratropium) 3 ml Q4H PRN HHN Shortness of Breath 03/01/17 11:45 03/06/17 11:44 03/03/17 08:27 Ampicillin Sodium/ Sulbactam Sodium 3 gm/Sodium Chloride 110 ml @ 220 mls/hr Q6HR IVPB 03/02/17 18:00 03/09/17 17:59 03/04/17 12:01 Aspirin (ASA) 81 mg DAILY ORAL 03/02/17 16:30 04/01/17 16:29 03/04/17 09:00 Atorvastatin Calcium (Lipitor) 80 mg BEDTIME ORAL 03/02/17 21:00 04/01/17 20:59 03/03/17 21:51 Dextrose (Dextrose 50%) STAT PRN IV Hypoglycemia 03/03/17 16:15 04/02/17 16:14 Furosemide (Lasix) 40 mg EVERY 12 HOURS ORAL 03/02/17 21:00 04/01/17 20:59 03/04/17 09:30 Heparin Sodium/ Dextrose 500 ml @ 16.465 mls/ hr adjust per protocol IV 03/02/17 23:00 04/01/17 22:59 03/04/17 09:39 Insulin Aspart (NovoLOG) BEFORE MEALS AND HS SUBQ 03/03/17 17:00 04/02/17 16:59 03/04/17 12:02 Insulin Detemir (Levemir) 10 units BEDTIME SUBQ 03/03/17 21:00 04/02/17 20:59 03/03/17 21:52 Metoprolol Tartrate (Lopressor) 12.5 mg Q12HR ORAL 03/02/17 21:00 04/01/17 20:59 03/03/17 21:51 Morphine Sulfate (Morphine Sulfate) 2 mg Q4H PRN IVP Severe Pain (Pain Scale 7-10) 03/01/17 11:45 03/08/17 11:44 Ondansetron HCl (Zofran) 4 mg Q6H PRN IVP Nausea & Vomiting 03/01/17 11:45 03/31/17 11:44 Oseltamivir Phosphate (Tamiflu) 75 mg TWICE A DAY ORAL 03/01/17 22:00 03/06/17 21:59 03/04/17 09:48 Pantoprazole (Protonix) 40 mg DAILY IVP 03/02/17 09:00 04/01/17 08:59 03/04/17 09:30 [facility] Center[facility] NP Mar 04, 2017 12:24
[2017-03-04] MEDS ORDERED: Heparin 25,000u/D5W 500ml 500 ML IV SCH (14:00)
[2017-03-04] MEDS ORDERED: Morphine Sulfate 4mg/ml Inj IVP PRN (14:30)
--- NOTE | 2017-03-04 14:46 | Internal Med Progress Note ---
Subjective Date of Service: Mar 04, 2017 Physician Name Jacque Rodarte Attending Physician Osmel Martinez MD Current Medications Medications (Trade) Dose Ordered Sig/Channing Route PRN Reason Start Time Stop Time Status Last Admin Dose Admin Acetaminophen (Tylenol) 650 mg Q4H PRN ORAL T>100.5F 03/04/17 14:30 03/31/17 14:29 Albuterol/ Ipratropium (Albuterol/ Ipratropium) 3 ml Q4H PRN HHN Shortness of Breath 03/04/17 15:45 03/09/17 23:59 Ampicillin Sodium/ Sulbactam Sodium 3 gm/Sodium Chloride 110 ml @ 220 mls/hr Q6HR IVPB 03/04/17 18:00 03/09/17 17:59 Aspirin (ASA) 81 mg DAILY ORAL 03/05/17 09:00 04/01/17 16:29 Atorvastatin Calcium (Lipitor) 80 mg BEDTIME ORAL 03/04/17 21:00 04/01/17 20:59 Dextrose (Dextrose 50%) STAT PRN IV Hypoglycemia 03/04/17 16:15 04/02/17 16:14 Furosemide (Lasix) 40 mg EVERY 12 HOURS ORAL 03/04/17 21:00 04/01/17 20:59 Heparin Sodium/ Dextrose 500 ml @ 16.465 mls/ hr adjust per protocol IV 03/04/17 14:00 04/01/17 22:59 Insulin Aspart (NovoLOG) BEFORE MEALS AND HS SUBQ 03/04/17 16:30 04/02/17 16:59 UNV Insulin Detemir (Levemir) 15 units BEDTIME SUBQ 03/04/17 21:00 04/03/17 20:59 UNV Metoprolol Tartrate (Lopressor) 12.5 mg Q12HR ORAL 03/04/17 21:00 04/01/17 20:59 Morphine Sulfate (Morphine Sulfate) 2 mg Q4H PRN IVP Severe Pain (Pain Scale 7-10) 03/04/17 14:30 03/08/17 14:29 Ondansetron HCl (Zofran) 4 mg Q6H PRN IVP Nausea & Vomiting 03/04/17 14:30 03/31/17 14:29 Oseltamivir Phosphate (Tamiflu) 75 mg TWICE A DAY ORAL 03/04/17 18:00 03/11/17 09:01 Pantoprazole (Protonix) 40 mg DAILY IVP 03/05/17 09:00 04/01/17 08:59 Allergies: Coded Allergies: No Known Allergies (Unverified , 03/01/17) Subjective 71 YO M admitted with shortness of breath. Now Influenza A pneumonia and mariano heart failure. Cover for Int Med-Dr Martinez. [facility]. Tolerating nasal canula Objective Last Vital Signs Date Time Temp Pulse Resp B/P (MAP) Pulse Ox O2 Delivery O2 Flow Rate FiO2 03/04/17 14:11 Venturi Mask 14.0 55 03/04/17 14:10 99 24 03/04/17 09:00 99/56 03/04/17 08:00 97.7 92 Laboratory Tests Test 03/04/17 06:38 White Blood Count 12.3 K/UL (4.8-10.8) H Red Blood Count 4.52 M/UL (4.70-6.10) L Hemoglobin 14.4 G/DL (14.2-18.0) Hematocrit 43.4 % (42.0-52.0) Mean Corpuscular Volume 96 FL (80-99) Mean Corpuscular Hemoglobin 31.8 PG (27.0-31.0) H Mean Corpuscular Hemoglobin Concent 33.2 G/DL (32.0-36.0) Red Cell Distribution Width 11.4 % (11.6-14.8) L Platelet Count 212 K/UL (150-450) Mean Platelet Volume 7.7 FL (6.5-10.1) Neutrophils (%) (Auto) % (45.0-75.0) Lymphocytes (%) (Auto) % (20.0-45.0) Monocytes (%) (Auto) % (1.0-10.0) Eosinophils (%) (Auto) % (0.0-3.0) Basophils (%) (Auto) % (0.0-2.0) Differential Total Cells Counted 100 Neutrophils % (Manual) 87 % (45-75) H Lymphocytes % (Manual) 9 % (20-45) L Monocytes % (Manual) 4 % (1-10) Eosinophils % (Manual) 0 % (0-3) Basophils % (Manual) 0 % (0-2) Band Neutrophils 0 % (0-8) Platelet Estimate Adequate Platelet Morphology Normal Red Blood Cell Morphology Normal Activated Partial Thromboplast Time 64 SEC (23-33) H Sodium Level 141 MMOL/L (136-145) Potassium Level 3.5 MMOL/L (3.5-5.1) Chloride Level 103 MMOL/L (98-107) Carbon Dioxide Level 34 MMOL/L (21-32) H Anion Gap 4 mmol/L (5-15) L Blood Urea Nitrogen 24 mg/dL (7-18) H Creatinine 0.7 MG/DL (0.55-1.30) Estimat Glomerular Filtration Rate mL/min (>60) Glucose Level 203 MG/DL (74-106) #H Hemoglobin A1c 10.6 % (4.3-6.0) H Calcium Level 7.1 MG/DL (8.5-10.1) L Pro-B-Type Natriuretic Peptide 9578 pg/mL (0-125) H Microbiology Date/Time Source Procedure Growth Status 03/01/17 23:30 Nasopharynx Influenza Types A,B Antigen (ERIN) - Final Complete Intake and Output 03/03/17 03/04/17 19:00 07:00 Intake Total 581.664 ml Output Total 700 ml 900 ml Balance -700 ml -318.336 ml Intake Oral 200 ml IV Total 381.664 ml Output Urine Total 700 ml 900 ml # Voids 3 3 # Bowel Movements 1 Objective General Appearance: alert, moderate distress, thin EENT: PERRL/EOMI, normal ENT inspection Neck: non-tender, normal alignment, supple, normal inspection Cardiovascular: normal peripheral pulses, normal rate, regular rhythm, no gallop/murmur, no JVD Respiratory/Chest: Nasal canula; chest wall non-tender, respiratory distress, accessory muscle use, crackles/rales, rhonchi - bilaterally, expiratory wheezing Abdomen: normal bowel sounds, non tender, soft, no organomegaly, no mass Extremities: normal range of motion, non-tender Neurologic: corporate auditor II-XII grossly normal, no motor/sensory deficits Skin: normal pigmentation, warm/dry Assessment/Plan Problem List: (1) Diabetes mellitus, type II (2) HTN (hypertension) Assessment & Plan: continue lopressor (3) Hypercholesterolemia Assessment & Plan: Cont lipitor (4) Bilateral pneumonia Assessment & Plan: Continue unasyn (5) Influenza A Assessment & Plan: Continue tamiflu per ID (6) Acute respiratory failure Assessment & Plan: Tolerating nasal canula (7) CHF (congestive heart failure) Assessment & Plan: LVEF=30%. See cardiology note. Status: progressing JACQUE RODARTE Mar 04, 2017 14:46
[2017-03-04] MEDS ORDERED: Albuterol/Ipratropium 3ml neb HHN PRN ×2 (15:45)
[2017-03-04 16:00] VITALS: BP 109/66
[2017-03-04] MEDS ORDERED: NovoLOG Insulin Flexpen SUBQ SCH (16:30)
[2017-03-04] MEDS ORDERED: Ampicillin/Sulbactam Sod 3 GM in NS 110 ML IVPB SCH (18:00)
[2017-03-04] MEDS ORDERED: Oseltamivir 75mg cap ORAL SCH (18:00)
[2017-03-04] MEDS ORDERED: NS 110ml ONE (18:29)
[2017-03-04] MEDS ORDERED: NS 500ML ONE (18:29)
[2017-03-04] MEDS ORDERED: Tubing IV Secondary IV ONE (18:29)
[2017-03-04] MEDS ORDERED: NS 55ml IV ONE (18:29)
[2017-03-04] MEDS ORDERED: D5W 275ml ONE (18:29)
[2017-03-04] MEDS ORDERED: Atorvastatin 80mg tab ORAL SCH (21:00)
[2017-03-04] MEDS ORDERED: Furosemide 40mg tab ORAL SCH (21:00)
[2017-03-04] MEDS ORDERED: Metoprolol Tartrate 12.5mg TAB ORAL SCH (21:00)
[2017-03-04] MEDS ORDERED: Levemir Flexpen SUBQ SCH ×2 (21:00)
[2017-03-05] MEDS ORDERED: Pantoprazole Inj IVP SCH (09:00)
[2017-03-05] MEDS ORDERED: Aspirin Baby 81mg ORAL SCH (09:00)
--- NOTE | 2017-03-06 00:05 | Cardiology Report ---
APPROVED REPORT EKG Measurement Heart [id number] Sinus tachycardia Possible Left atrial enlargement Anteroseptal infarct, age undetermined Abnormal ECG
--- NOTE | 2017-03-06 14:30 | Diagnostic Imaging Report ---
Indication: Dyspnea Technique: XRAY Chest 1v Comparison: 03/02/2017 Findings: Cardiomediastinal silhouette is stable. Extensive nodular airspace disease is noted bilaterally. Osseous structures are stable. Impression: No significant change from 03/02/2017.
--- NOTE | 2017-03-07 07:59 | Discharge Summary ---
Discharge Summary Hospital Course Date of Admission Mar 01, 2017 at 10:36 Date of Discharge Mar 04, 2017 at 18:30 Admitting Diagnosis Chest Pain HPI Dylon Adams is a 72 year old male who was admitted on Mar 01, 2017 at 10:36 for Chest Pain/Shortness Of Breath Hospital Course dc summary #[id number] Discharge Discharge Disposition Patient was discharged to Acute Care Facility(02) Discharge Diagnoses: Donato (Ceciliajovi),Mitzy ADAMS Mar 07, 2017 07:59
--- NOTE | 2017-03-08 04:00 | Discharge Summary 2 SIG ---
DATE OF ADMISSION: 03/01/2017 DATE OF DISCHARGE: 03/04/2017 REASON FOR ADMISSION: 72-year-old male with history of diabetes, was brought in by daughter with two days of productive cough, decreased appetite, generalized malaise, and shortness of breath. The patient reported progressively worse shortness of breath. He denied smoking. Denied any history of chronic obstructive pulmonary disease or asthma. Chest x-ray showed extensive infiltrates . He was positive for influenza type A. The patient reported not taking anti-glcyemic medications, only using diet in hope to keep blood sugar under control. The patient was noted to have elevated troponin. Initial troponin -0.93 and then repeated-1.246. Lactic acid -4.1. Glucose-397. WBC-15.4 The patient required placement of 100% nonrebreathing mask. EKG revealed sinus tachycardia with Q-waves in anterior leads. The patient was admitted to [facility] for further management with diagnoses of dyspnea, acute respiratory failure requiring nonrebreathing mask, elevated troponin, sepsis, influenza type A, and bilateral pneumonia. HOSPITAL COURSE: The patient was admitted to [facility]. Supplemental oxygen provided initially via nonrebreathing mask and was titrated to keep saturation above 92%. Pulmonary toilet provided. The patient eventually was able to be weaned from nonrebreathing mask to Venturi mask and then to oxygen via nasal cannula. ID and Cardiology consults were requested. The patient was on empiric antibiotics. Blood cultures were negative. Sputum culture revealed Valerie. The patient was on empiric antibiotics for treatment of presumed underlying bilateral pneumonia. ID specialist directed antibiotics therapy. The patient was followed up with chest x-ray. Chest x-ray prior to discharge did not reveal any significant changes. However, clinically patient was improving. Igniter Assembler closely followed the patient for elevated troponin. Second troponin with the elevation from 0.93 initial to 1.246 and then down to 1.126. Pro-BNP - 9578. Lactic acid trended down,- 2.5. The patient undergone echocardiogram, which revealed ejection fraction of 30% to 35%. No evidence of left ventricular hypertrophy. Echodensity was seen on apex, likely thrombus, significant left ventricular diastolic dysfunction. The patient was diagnosed by janitor head with acute systolic and diastolic congestive heart failure per echocardiogram and possible left ventricular thrombus. The patient was started on heparin drip. According to janitor head, elevation of troponin could be either due to myocarditis and underlying pneumonia secondary to influenza or due to demand ischemia in the setting of coronary artery disease, possible NSTEMI. The patient also has evidence of pulmonary edema. The patient was on intravenous diuresis. Volumes and cardiorenal parameters were closely monitored. Per janitor head, the patient eventually will need left and right heart catheterization when stabilized and free from infection. Heparin drip was continued for presumed LV thrombus. Medical management of congestive heart failure was initiated with beta-marie, Lasix, and DARÍO inhibitor. The patient was continued on aspirin and statin. GI prophylaxis provided. Blood sugar was high. Hemoglobin A1c- 10.7, clearly not at goal. The patient was started on Levemir and dose was subsequently up-titrated and sliding scale of insulin as needed. The patient was stable to be transferred from [facility] to telemetry floor. The patient needs further treatment and transfer was arranged to [facility] per insurance. The patient was stable for transfer. FINAL DIAGNOSES: 1. Acute hypoxemic respiratory failure requiring nonrebreathing mask, resolved. 2. Likely sepsis. 3. Influenza A. 4. Probably concomitant bilateral pneumonia. 5. Elevated troponin due to myocarditis versus demand ischemia. 6. Possible non-ST elevation myocardial infarction. 7. Pulmonary edema. 8. Acute systolic and diastolic congestive heart failure. 9. Probably left ventricular thrombus. 10. Diabetes mellitus, out of control. DISCHARGE MEDICATIONS: Medication list was sent to the admitting facility. DISCHARGE INSTRUCTIONS: The patient was discharged to [facility] as per insurance; follow up with medical doctor at the facility. Osmel Martinez M.D. Mitzy Toneyjackelin NMicki DR: VAN JOB#: [id number] CC: CIERA
--- NOTE | 2017-03-10 15:59 | Cardiology Report ---
APPROVED REPORT EKG Measurement Heart [id number] Sinus tachycardia Possible Left atrial enlargement Low voltage QRS Septal infarct, age undetermined Abnormal ECG
--- NOTE | 2017-03-10 16:11 | Cardiology Report ---
APPROVED REPORT EKG Measurement Heart [id number] Sinus tachycardia Inc RBBB Possible Left atrial enlargement Possible Inferior infarct, age undetermined Anterior infarct, age undetermined Abnormal ECG
--- NOTE | 2017-03-12 11:19 | Cardiology Report ---
APPROVED REPORT EXAM: Two-dimensional and M-mode echocardiogram with Doppler and color Doppler. INDICATION Left ventricular function M-Mode DIMENSIONS IVSd0.9 (0.7-1.1cm)Left Atrium (MM)3.8 (1.6-4.0cm) LVDd4.7 (3.5-5.6cm)Aortic Root3.1 (2.0-3.7cm) PWd1.2 (0.7-1.1cm)Aortic Cusp Exc.1.9 (1.5-2.0cm) LVDs3.9 (2.5-4.0cm) PWs1.1 cm Technically difficult study due to poor acoustical windows. Normal left ventricular chamber size. Global left ventricular hypokinesis, worse in mid to distal segments. Left ventricular ejection fraction estimated to be 30-35%. No evidence of left ventricular hypertrophy. No evidence of pericardial or pleural effusion. Right cardiac chamber sizes are within normal limits. Mild left atrial enlargement by 2D. Focal aortic valve sclerosis with adequate cusp excursion. Thickened mitral valve leaflets with normal excursion. Mild mitral annulus and aortic root calcification. Pulmonic valve not well visualized. Normal tricuspid valve structure. IVC is normal in size and collapsible with respiration. Echo density seen on apex (Thrombos). A color flow and spectral Doppler study was performed and revealed: No aortic regurgitation. Mild mitral regurgitation. Mitral inflow velocities indicates possible pseudo normalization pattern implying significant left ventricular diastolic dysfunction. No tricuspid regurgitation. Clinical criteria: SRIRAM Greer and are aware on 03/01/17 at 12:30
== END 2017-03-04 18:30 | disposition short-term general hospital (02) | DRG 871 ==
LOC: EDBEDREQ 09:06 → EDBEDREQSVC 10:03 → EMR 10:20 → 2E 10:36 → EDBEDREQ 12:57 → EDBEDREQSVC 17:43 → EDBEDREQ 19:08 → EDBEDREQTM 19:27 → EDBEDREQSVC 19:27 → EDBEDREQ 21:23 → 2W 21:39 → 2E 03-04 14:31
DX: A41.9 Sepsis, unspecified organism (principal); J09.X1 Influenza due to identified novel influenza A virus with pneumonia; J96.01 Acute respiratory failure with hypoxia; I50.41 Acute combined systolic (congestive) and diastolic (congestive) heart failure; I24.0 Acute coronary thrombosis not resulting in myocardial infarction; R65.20 Severe sepsis without septic shock; E11.9 Type 2 diabetes mellitus without complications; I51.4 Myocarditis, unspecified; Z91.14 Patient's other noncompliance with medication regimen; E78.00 Pure hypercholesterolemia, unspecified
CPT/HCPCS: 36415; 36600; 71045; 80048; 80053; 80150; 82248; 82465; 82550; 82553; 82803; 82962; 83036; 83605; 83735; 83880; 84100; 84443; 84484; 85007; 85025; 85610; 85730; 86710; 87040; 87070; 87081; 87205; 93005; 93306; 94640; 94660; 94664; 94760; J1815; J7620; S5561

== ENCOUNTER → 2019-06-01 | Emergency (ER) | payer MEDICAID, MEDICARE, OTHER ==
[~2019-06-01] VITALS: Ht 165.1 cm; Wt 63.5 kg
--- NOTE | 2019-06-01 21:05 | NUR ---
patient left without being seen
--- NOTE | 2019-06-01 22:18 | Emergency Room Report ---
History of Present Illness General Chief Complaint: General Complaint Present Illness HPI Patient left without being seen by me. Apparently daughter wanted to be at bedside with patient and as we told her there were no visitors I came to speak with daughter and patient out in the triage waiting room however they left the ER prior to being seen by me. Allergies: Coded Allergies: No Known Allergies (Unverified , 02/24/19) COVID-19 Screening Contact w/high risk pt: No Recent Travel to affected area: No Experienced COVID-19 symptoms?: No Nursing Documentation-PMH Hx Cardiac Problems: Yes Hx Diabetes: Yes Hx Cancer: No Hx Gastrointestinal Problems: No Hx Neurological Problems: No Physical Exam Vital Signs Date Time Temp Pulse Resp B/P (MAP) Pulse Ox O2 Delivery O2 Flow Rate FiO2 06/01/19 21:06 98.2 70 20 155/87 (109) 96 Room Air Medical Decision Making Diagnostic Impression: Primary Impression: Encounter for generalized patient complaints Last Vital Signs Date Time Temp Pulse Resp B/P (MAP) Pulse Ox O2 Delivery O2 Flow Rate FiO2 06/01/19 21:06 98.2 70 20 155/87 (109) 96 Room Air Disposition: LEFT W/OUT BEING SEEN Condition: Unknown Scripts No Active Prescriptions or Reported Meds Aurelio Sainz M.D. Jun 01, 2019 22:18
[2019-06-01 22:38] VITALS: BP 0/0
== END | disposition left against medical advice (07) ==
LOC: EMR 21:42
DX: Z53.21 Procedure and treatment not carried out due to patient leaving prior to being seen by health care provider (principal)